=== PATIENT | female | born 1940 | race Caucasian/White ===

== ENCOUNTER 2020-08-23 06:06 | Outpatient (REF) | payer MEDICARE, SELFPAY ==
[2020-08-23 12:02] LABS: Alanine Aminotransferase 22 U/L (0-31); Anion Gap 11 (12-20); Aspartate Amino Transferase 16 U/L (5-31); Blood Urea Nitrogen 19 mg/dL (9-16); Calcium 9.8 mg/dL (8.4-10.2); Carbon Dioxide 30 mmol/L (22-29); Chloride 104 mmol/L (96-108); Cholesterol 155 mg/dL; Estimated Glomerular Filt Rate > 60; Glucose Fasting 98 mg/dL (60-99); HDL Cholesterol 45 mg/dL; LDL Cholesterol Calculated 90 mg/dl; Potassium 4.1 mmol/L (3.3-5.1); Sodium 141 mmol/L (135-145); Triglycerides 103 mg/dL
[2020-08-23 12:25] LABS: Thyroid Stimulating Hormone 3.13 uIU/mL (0.32-4.0)
[2020-08-28 08:32] LABS: Vitamin D 25-OH, D2 <4 ng/mL; Vitamin D 25-OH, D3 57 ng/mL; Vitamin D 25-OH, Total 57 ng/mL (30-100)
== END 2020-08-23 06:07 | disposition home or self-care (01) ==
LOC: HO.HMGCLDS 06:06
PROVIDERS: PCP Internal Medicine; Visit Provider Internal Medicine
DX: E03.9 Hypothyroidism, unspecified (principal); E78.5 Hyperlipidemia, unspecified; M85.852 Other specified disorders of bone density and structure, left thigh; R73.01 Impaired fasting glucose; I10 Essential (primary) hypertension
CPT/HCPCS: 36415; 80048; 80061; 82306; 84439; 84443; 84450; 84460

== ENCOUNTER 2021-02-14 07:15 | Outpatient (REF) | payer MEDICARE, SELFPAY ==
--- NOTE | ~2021-02-14 | MM_ITS ---
EXAMINATION: MM SCREENING DIGITAL BREAST TOMOSYNTHESIS, BILATERAL CLINICAL INFORMATION: Screening. Asymptomatic. The lifetime risk of breast cancer based on the Tyrer-Cuzick Model is 2%. COMPARISON: Mammography: 02/14/2020, 02/09/2019, 02/08/2018 TECHNIQUE: Digital breast tomosynthesis is performed in both the craniocaudal and mediolateral oblique views along with computer-aided detection (CAD). Synthesized 2D images are generated from the tomosynthesis. FINDINGS: There are scattered areas of fibroglandular density (ACR BI-RADS breast composition Category b). There are no significant masses, abnormal calcifications, or other abnormalities. Parenchymal pattern is similar to prior exams. Minor asymmetries central left and posterior outer right breast on the CC views are stable. 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 There are no significant changes. MM/MM tomosynthesis screening BI IMPRESSION: No mammographic evidence of malignancy. ASSESSMENT: BI-RADS 2: Benign RECOMMENDATION: Routine annual mammography screening. This patient's information was entered into a reminder system with a target due date for their next mammogram.
== END 2021-02-14 07:16 | disposition home or self-care (01) ==
LOC: HO.MAMMO 07:15
PROVIDERS: PCP Internal Medicine; Visit Provider Internal Medicine
DX: Z12.31 Encounter for screening mammogram for malignant neoplasm of breast (principal)
CPT/HCPCS: 77063; 77067

== ENCOUNTER 2021-03-03 06:34 | Outpatient (REF) | payer MEDICARE, SELFPAY ==
[2021-03-03 12:50] LABS: Free T4 (Free Thyroxine) 0.98 ng/dL (0.71-1.85); Thyroid Stimulating Hormone 2.17 uIU/mL (0.32-4.0); Vitamin D 25-OH Total 41.9 ng/mL (>30)
[2021-03-03 13:09] LABS: Alanine Aminotransferase 16 U/L (0-31); Anion Gap 8 (12-20); Aspartate Amino Transferase 12 U/L (5-31); Blood Urea Nitrogen 17 mg/dL (9-16); Calcium 9.7 mg/dL (8.4-10.2); Carbon Dioxide 29 mmol/L (22-29); Chloride 109 mmol/L (96-108); Cholesterol 164 mg/dL; Estimated Glomerular Filt Rate > 60; Glucose Fasting 104 mg/dL (60-99); HDL Cholesterol 38 mg/dL; LDL Cholesterol Calculated 101 mg/dl; Sodium 142 mmol/L (135-145); Triglycerides 126 mg/dL
== END 2021-03-03 06:35 | disposition home or self-care (01) ==
LOC: HO.HMGCLDS 06:34
PROVIDERS: PCP Internal Medicine; Visit Provider Internal Medicine
DX: E03.9 Hypothyroidism, unspecified (principal); E78.5 Hyperlipidemia, unspecified; M85.852 Other specified disorders of bone density and structure, left thigh; R73.01 Impaired fasting glucose; I10 Essential (primary) hypertension
CPT/HCPCS: 36415; 80048; 80061; 82306; 84439; 84443; 84450; 84460

== ENCOUNTER 2021-11-21 06:12 | Outpatient (REF) | payer MEDICARE, SELFPAY ==
[2021-11-21 12:06] LABS: Alanine Aminotransferase 13 U/L (0-31); Anion Gap 12 (12-20); Aspartate Amino Transferase 13 U/L (5-31); Blood Urea Nitrogen 20 mg/dL (9-16); Calcium 10.1 mg/dL (8.4-10.2); Carbon Dioxide 25 mmol/L (22-29); Chloride 110 mmol/L (96-108); Cholesterol 172 mg/dL; Estimated Glomerular Filt Rate > 60; Glucose Fasting 103 mg/dL (60-99); HDL Cholesterol 41 mg/dL; LDL Cholesterol Calculated 108 mg/dl; Potassium 4.6 mmol/L (3.3-5.1); Sodium 142 mmol/L (135-145); Triglycerides 117 mg/dL
[2021-11-21 12:11] LABS: Free T4 (Free Thyroxine) 1.02 ng/dL (0.71-1.85); Thyroid Stimulating Hormone 2.08 uIU/mL (0.32-4.0)
== END 2021-11-21 06:13 | disposition home or self-care (01) ==
LOC: HO.HMGCLDS 06:12
PROVIDERS: Visit Provider Internal Medicine
DX: E03.9 Hypothyroidism, unspecified (principal); M85.852 Other specified disorders of bone density and structure, left thigh; E78.5 Hyperlipidemia, unspecified; R73.01 Impaired fasting glucose; Z78.0 Asymptomatic menopausal state; Z51.81 Encounter for therapeutic drug level monitoring; Z79.83 Long term (current) use of bisphosphonates
CPT/HCPCS: 36415; 80048; 80061; 82306; 84439; 84443; 84450; 84460

== ENCOUNTER 2022-02-20 07:20 | Outpatient (REF) | payer MEDICARE, SELFPAY ==
--- NOTE | ~2022-02-20 | MM_ITS ---
EXAMINATION: MM SCREENING DIGITAL BREAST TOMOSYNTHESIS, BILATERAL CLINICAL INFORMATION: Screening. Asymptomatic. The lifetime risk of breast cancer based on the Tyrer-Cuzick Model is 2%. COMPARISON: Mammography: 02/14/2021, 02/14/2020, 02/09/2019, 02/08/2018, 02/05/2017 TECHNIQUE: Digital breast tomosynthesis is performed in both the craniocaudal and mediolateral oblique views along with computer-aided detection (CAD). Synthesized 2D images are generated from the tomosynthesis. FINDINGS: There are scattered areas of fibroglandular density (ACR BI-RADS breast composition Category b). Parenchymal pattern is similar to prior studies. There are scattered minor stable asymmetries. No significant mass or architectural abnormality or developing density. There is a small benign circumscribed nodule with peripheral coarse calcification mid outer right breast consistent with degenerating fibroadenoma. Bilateral vascular calcifications are again seen. Low axillary tail nodes are stable. There are no significant changes. MM/MM tomosynthesis screening BI IMPRESSION: No mammographic evidence of malignancy. ASSESSMENT: BI-RADS 2: Benign RECOMMENDATION: Routine annual mammography screening. This patient's information was entered into a reminder system with a target due date for their next mammogram.
--- NOTE | ~2022-02-20 | MM_ITS ---
EXAMINATION: BONE DENSITOMETRY CLINICAL INDICATION: Other specified disorders of bone density and structure. COMPARISON: Previous BD dated 02/14/2020 and baseline BD dated 12/15/2007. TECHNIQUE: Using a [employer] DXA System (software version: 13.1) manufactured by [employer], dual-energy x-ray absorptiometry was performed of the lumbar spine and left hip. The images are of good technical quality. Summary results are attached. FINDINGS: AP SPINE L1-L4: Current: BMD 1.294 g/cm2, Z-score 2.7, T-score 1.0, normal, 9.6% increase from previous, 16.6% increase from baseline (<5% change is not significant). Prior: BMD 1.181 g/cm2. Baseline: BMD 1.110 g/cm2. LEFT FEMUR, NECK: Current: BMD 0.600 g/cm2, Z-score -1.1, T-score -3.2, osteoporosis. Prior: BMD 0.700 g/cm2. Baseline: BMD 0.708 g/cm2. LEFT FEMUR, TOTAL: Current: BMD 0.757 g/cm2, Z-score -0.1, T-score -2.0, osteopenia, 12.6% decrease from previous, 8.8% decrease from baseline (<5% change is not significant). Prior: BMD 0.866 g/cm2. Baseline: BMD 0.830 g/cm2. IDENTIFIED RISK FACTORS: Menopause, hysterectomy, history of fracture (adult). HISTORY OF FRACTURE: Shoulder. MEDICATIONS: Multivitamin, bisphosphonates. MM/XR DEXA axial skeleton IMPRESSION: 1. DIAGNOSIS: Osteoporosis based on the lowest T-score value of -3.2 in the femoral neck applying World Health Organization criteria. 2. 10-YEAR FRACTURE RISK PREDICTION, FRAX: According to the guidelines, FRAX calculation should only be performed on patients in the osteopenia bone density category. Therefore, FRAX was not performed on this patient. 3. Treatment Recommendations: NOF guidelines recommend consideration for treatment in postmenopausal women and men age 50 and older presenting with the following: -A hip or vertebral (clinical or morphometric) fracture. -T-score less than or equal to -2.5 at the femoral neck or spine after appropriate evaluation to exclude secondary causes. -Low bone mass at the hip or spine and a 10-year fracture probability by FRAX of greater than or equal to 3% for hip fracture or greater than or equal to 20% for major osteoporotic fracture based on the [place] adapted WHO algorithm. 4. Other Recommendations: All treatment decisions require clinical judgment and consideration of individual patient factors, including patient preferences, comorbidities, previous drug use, risk factors not captured in the FRAX model (e.g. frailty, falls, vitamin D deficiency, increased bone turnover, interval significant decline in bone density) and possible under or overestimation of fracture risk by FRAX. Additional medical evaluation for secondary cause of low bone mineral density may be appropriate. FUTURE SCAN RECOMMENDATION: People with diagnosed cases of osteoporosis or at high risk for fracture should have regular bone mineral density tests. For patients eligible for Medicare, routine testing is allowed once every 2 years. The testing frequency can be increased to one year for patients who have rapidly progressing disease, those who are receiving or discontinuing medical therapy to restore bone mass, or have additional risk factors.
== END 2022-02-20 07:21 | disposition home or self-care (01) ==
LOC: HO.MAMMO 07:20
PROVIDERS: PCP Internal Medicine; Visit Provider Internal Medicine
DX: Z12.31 Encounter for screening mammogram for malignant neoplasm of breast (principal); Z13.820 Encounter for screening for osteoporosis; Z78.0 Asymptomatic menopausal state; M85.852 Other specified disorders of bone density and structure, left thigh
CPT/HCPCS: 77063; 77067; 77080

== ENCOUNTER → 2022-02-26 13:34 | Outpatient (BNVA) | payer MEDICARE, SELFPAY | PROVIDERS: PCP Internal Medicine; Visit Provider Internal Medicine Endocrinology, Diabetes & Metabolism | DX: M81.0 Age-related osteoporosis without current pathological fracture (principal) | CPT/HCPCS: 99202 ==

== ENCOUNTER 2022-04-28 06:47 | Outpatient (REF) | payer MEDICARE, SELFPAY ==
[2022-04-28 11:29] LABS: MANUAL DIFF FLAG NO
[2022-04-28 11:38] LABS: Basophils Percent Auto 0.6 % (0-2); Eosinophils Absolute Auto 0.1 X10*3/uL (0.0-0.4); Eosinophils Percent Auto 2.1 % (0-4); Hematocrit 41.9 % (37.0-47.0); Hemoglobin 13.6 g/dl (12.0-16.0); Imm Gran Abs Auto 0.02 X10*3/uL (0.00-0.03); Imm Gran Pct Auto 0.3 % (0.0-0.4); Lymphocytes Absolute Auto 1.8 X10*3/uL (1.2-4.9); Lymphocytes Percent Auto 28.9 % (20-40); Mean Corpuscular HGB Conc 32.5 g/dl (31.0-35.0); Mean Corpuscular Hemoglobin 28.9 pg (27.0-33.0); Mean Corpuscular Volume 89.1 fL (80.0-98.0); Mean Platelet Volume 10.7 fL (9.4-12.3); Monocytes Absolute Auto 0.5 X10*3/uL (0.1-1.2); Monocytes Percent Auto 7.7 % (2-11); Neutrophils Absolute Auto 3.8 x10*3/uL (2.0-8.3); Neutrophils Percent Auto 60.4 % (45-73); Platelet Count 273 X10*3/uL (160-400); Red Cell Distribution Width 13.2 % (11.0-16.0); White Blood Count 6.3 X10*3/uL (4.8-10.8)
[2022-04-28 12:11] LABS: Estimated Average Glucose 120 mg/dL; Hemoglobin A1c % 5.8 %
[2022-04-28 14:10] LABS: Alanine Aminotransferase 24 U/L (0-31); Anion Gap 11 (12-20); Aspartate Amino Transferase 17 U/L (5-31); Blood Urea Nitrogen 21 mg/dL (9-16); Calcium 10.3 mg/dL (8.4-10.2); Carbon Dioxide 28 mmol/L (22-29); Chloride 107 mmol/L (96-108); Cholesterol 189 mg/dL; Estimated Glomerular Filt Rate > 60; Glucose Fasting 110 mg/dL (60-99); HDL Cholesterol 48 mg/dL; LDL Cholesterol Calculated 116 mg/dl; Phosphorus 3.5 mg/dL (2.7-4.5); Potassium 4.1 mmol/L (3.3-5.1); Sodium 142 mmol/L (135-145); Thyroid Stimulating Hormone 3.07 uIU/mL (0.32-4.0); Triglycerides 127 mg/dL
[2022-04-28 18:01] LABS: Free T4 (Free Thyroxine) 1.05 ng/dL (0.71-1.85); Vitamin D 25-OH Total 56.4 ng/mL (>30)
[2022-05-01 22:49] LABS: Prot Elec - Albumin 4.4 g/dL (3.8-4.8); Prot Elec - Alpha1 0.2 g/dL (0.2-0.3); Prot Elec - Alpha2 0.8 g/dL (0.5-0.9); Prot Elec - Beta 1 0.4 g/dL (0.4-0.6); Prot Elec - Beta 2 0.3 g/dL (0.2-0.5); Prot Elec - Gamma 0.8 g/dL (0.8-1.7); Prot Elec - Total Protein 6.8 g/dL (6.1-8.1)
[2022-05-04 14:23] LABS: N-Telopeptide 23 (see note); NTXCreaRU 45 mg/dL (20-275)
== END 2022-04-28 06:48 | disposition home or self-care (01) ==
LOC: HO.HMGCLDS 06:47
PROVIDERS: Absent Provider Internal Medicine Endocrinology, Diabetes & Metabolism; PCP Internal Medicine; Visit Provider Internal Medicine
DX: Z00.01 Encounter for general adult medical examination with abnormal findings (principal); R73.01 Impaired fasting glucose; E03.9 Hypothyroidism, unspecified; M85.852 Other specified disorders of bone density and structure, left thigh; E78.5 Hyperlipidemia, unspecified; M81.0 Age-related osteoporosis without current pathological fracture
CPT/HCPCS: 36415; 80048; 80061; 82306; 82523; 83036; 84100; 84165; 84439; 84443; 84450; 84460; 85025

== ENCOUNTER 2022-06-09 06:10 | Outpatient (REF) | payer MEDICARE, SELFPAY ==
[2022-06-09 14:09] LABS: Total Volume 24 Hour Urine 2025 mL
[2022-06-09 14:21] LABS: Creatinine, 24Hr Urine 0.9 G/Day (1.0-2.0); Creatinine, mg/dL 44.88
[2022-06-11 16:23] LABS: Calcium, 24 Hr Urine 128 mg/24 h; Calcium/Creatinine Ratio 147 mg/g creat (30-275); Creatinine 24Hr Urine 0.87 g/24 h (0.50-2.15)
== END 2022-06-09 06:11 | disposition home or self-care (01) ==
LOC: HO.HMGCLDS 06:10
PROVIDERS: PCP Internal Medicine; Visit Provider Internal Medicine Endocrinology, Diabetes & Metabolism
DX: M81.0 Age-related osteoporosis without current pathological fracture (principal)
CPT/HCPCS: 82340; 82570

== ENCOUNTER 2022-07-01 07:42 | Outpatient (REF) | payer MEDICARE, SELFPAY | END 2022-07-01 07:43 | disposition home or self-care (01) | LOC: HO.HMGCLDS 07:42 | PROVIDERS: PCP Internal Medicine; Visit Provider Internal Medicine Endocrinology, Diabetes & Metabolism | DX: M81.0 Age-related osteoporosis without current pathological fracture (principal) | CPT/HCPCS: 86335 ==

== ENCOUNTER → 2022-07-03 07:57 | Outpatient (BNVA) | payer MEDICARE, SELFPAY | PROVIDERS: PCP Internal Medicine; Visit Provider Internal Medicine Endocrinology, Diabetes & Metabolism | DX: M81.0 Age-related osteoporosis without current pathological fracture (principal); E03.9 Hypothyroidism, unspecified; R73.01 Impaired fasting glucose | CPT/HCPCS: 99212 ==

== ENCOUNTER 2022-09-08 06:21 | Outpatient (REF) | payer MEDICARE, SELFPAY ==
[2022-09-08 11:51] LABS: Alanine Aminotransferase 16 U/L (0-31); Anion Gap 11 (12-20); Aspartate Amino Transferase 14 U/L (5-31); Blood Urea Nitrogen 14 mg/dL (9-16); Calcium 9.8 mg/dL (8.4-10.2); Carbon Dioxide 27 mmol/L (22-29); Chloride 110 mmol/L (96-108); Cholesterol 175 mg/dL; Estimated Glomerular Filt Rate > 60; Glucose Fasting 111 mg/dL (60-99); HDL Cholesterol 41 mg/dL; LDL Cholesterol Calculated 110 mg/dl; Potassium 4.7 mmol/L (3.3-5.1); Sodium 143 mmol/L (135-145); Triglycerides 122 mg/dL
[2022-09-08 12:09] LABS: Free T4 (Free Thyroxine) 1.13 ng/dL (0.71-1.85); Thyroid Stimulating Hormone 2.26 uIU/mL (0.32-4.0)
[2022-09-08 12:11] LABS: Estimated Average Glucose 117 mg/dL; Hemoglobin A1c % 5.7 %
== END 2022-09-08 06:22 | disposition home or self-care (01) ==
LOC: HO.HMGCLDS 06:21
PROVIDERS: Absent Provider Internal Medicine Endocrinology, Diabetes & Metabolism; PCP Internal Medicine; Visit Provider Internal Medicine
DX: R73.01 Impaired fasting glucose (principal); E03.9 Hypothyroidism, unspecified; E78.5 Hyperlipidemia, unspecified
CPT/HCPCS: 36415; 80048; 80061; 83036; 84439; 84443; 84450; 84460

== ENCOUNTER 2022-09-16 08:19 | Outpatient (AMB) | payer MEDICARE, SELFPAY ==
[2022-09-16 08:38] VITALS: BP 148/70; PULSE 88; O2SAT 98; BMI 26.2
--- NOTE | 2022-09-16 08:38 | MHC.PC.OV ---
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 Intake Note: Pt is here today for her 4 months f/u Allergies No Known Allergies [No Known Allergies*] Allergy (Verified 03/16/23 09:18) Medication List - Last Reconciled 09/16/22 by Sandi Faulkner MD aspirin 81 mg PO DAILY cholecalciferol (vitamin D3) 25 mcg PO DAILY levothyroxine 50 mcg PO QAM simvastatin 40 mg PO BEDTIME Tobacco use date assessed: 09/16/22 Fall risk assessment: No Falls in past year Last assessed Fall Risk: 09/16/22 HPI 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 Recent fasting labs done showed normal electrolytes, with normal renal function, fasting glucose is mildly elevated but hemoglobin A1c at 5.7%, liver enzymes, lipid levels, thyroid levels are all within normal limits as well Laboratory Tests 09/08/22 09/08/22 06:44 06:44 Sodium 143 Potassium 4.7 Chloride 110 H Carbon Dioxide 27 Anion Gap 11 L BUN 14 Creatinine 0.74 Estimated GFR > 60 Fasting Glucose 111 H Estimat Average Gl ucose 117 Hemoglobin A1c % 5.7 Calcium 9.8 AST 14 ALT 16 Triglycerides 122 Cholesterol 175 LDL Cholesterol, C alc 110 HDL Cholesterol 41 TSH 2.26 Free T4 1.13 [facility] Medical History (Updated 03/17/23 @ 03:30 by Sandi Faulkner MD) Refused influenza vaccine Osteoporosis Fracture dislocation of left shoulder joint Impaired fasting glucose Hypothyroidism (acquired) Hyperlipidemia Surgical History History of cataract surgery History of tonsillectomy and adenoidectomy Hx of total hysterectomy Family History Father No problems noted. Mother No problems noted. Maternal Grandmother No problems noted. Maternal Grandfather No problems noted. Social History Housing: House Alcohol intake: never Patient Tobacco Use Status: Never used Tobacco e-Cigarette/Vaping Use: Never Used Current occupational status: retired Cognitive needs: No Hearing needs: No Vision needs: No Questionnaire PHQ-9 Over the last 2 weeks, how often have you been bothered by any of the following problems? 15903 - PHQ-9 Billing: Patient declined-do not bill Source: Developed by Drs. Daryl Sandoval, Ananth Alanis and colleagues, with an educational becky from [employer]. Thrive Questionnaire Declines Thrive assessment: Yes Date Thrive assessed: 11/27/21 AUDIT C Alcohol Use Questionnaire (AUDIT-C) 1. How often do you have a drink containing alcohol?: Monthly or less 2. How many drinks containing alcohol do you have on a typical day when you are drinking?: 1 or 2 3. How often do you have six or more drinks on one occasion?: Never Total Score: 1 BINTA-7 AMB Questionnaire BINTA-7 Date BINTA - 7 assessed: 09/16/22 Source: Developed by Drs. Daryl Sandoval, Megan Gurrola, Ananth Lake and colleagues, with an educational becky from [employer]. BINTA-7 Assessment Billing BINTA-7 Assessment Tool: pt declined-do not bill Review of Systems Const Denies body aches, Denies fatigue, Denies fever(s), Denies headache(s) and Denies weakness Eyes Details: Up-to-date with her eye exam, goes to [facility] Denies change in vision ENT Denies dizziness, Denies headache(s), Denies nasal congestion, Denies nasal discharge and Denies sore throat Card Denies chest pain, Denies lightheadedness, Denies palpitations and Denies dyspnea Resp Denies chest congestion, Denies cough, Denies dyspnea and Denies wheezing GI Denies abdominal pain, Denies change in bowel habits and Denies heartburn Denies hematuria, Denies urinary frequency, Denies dysuria and Denies urinary urgency Musc Reports no additional complaints Skin/Breast Denies breast pain, Denies breast mass, Denies lesions and Denies rash Neuro Denies dizziness, Denies headache(s) and Denies weakness Psych Reports no additional complaints Endo Denies fatigue, Denies polydipsia, Denies polyuria and Denies palpitations Michael/Lymph Denies easy bruising Aller/Immun Denies seasonal rhinorrhea and Denies wheezing Physical exam (Primary Care) Vital Signs: Last Vital Signs Pulse 88 09/16/22 08:38 BP 148/70 H 09/16/22 08:38 Pulse Ox 98 09/16/22 08:38 Oxygen Delivery Method Room Air 09/16/22 08:38 BMI result Body Mass Index 26.2 Tobacco/Smoking Status: Tobacco use Status Tobacco use date assessed 09/16/22 09/16/22 08:41 Patient Tobacco Use Status Never used Tobacco 09/16/22 08:41 e-Cigarette/Vaping Use Never Used 09/16/22 08:41 Thrive Assessment: Date of Thrive Assessment Date Thrive assessed 11/27/21 09/16/22 08:41 Const General: comfortable, no acute distress and alert Orientation/consciousness: patient oriented x3 Limitations: no limitations HENMT Ears: hearing grossly normal bilaterally, external ears normal and Abnormal EAC present excessive cerumen bilateral General nose exam: Normal external nose present and No nasal discharge present Mouth: oropharynx normal and moist mucous membranes Eyes General: appearance normal, both eyes and all related structures Neck Neck: Yes full ROM, Yes no lymphadenopathy and Yes supple Thyroid: Thyroid normal Resp Effort & Inspection: normal respiratory effort and able to speak in complete sentences Auscultation: clear to auscultation bilaterally Cardio Rate: regular rate Rhythm: regular rhythm Heart sounds: S1 normal heart sound present and S2 normal heart sound present GI Palpation (GI): Soft to palpation, nontender and no masses Auscultation: normal bowel sounds Neuro General: patient oriented x3, gait normal, tone normal, moves all extremities, Normal light touch and pain sensation and no focal motor deficits Cranial nerves: Yes CN's II-XII intact bilaterally Cognition (Neuro): normal cognition Extrem General: Yes full ROM, Yes no joint enlargement, Yes no clubbing, cyanosis or edema and Yes no calf tenderness Results Reviewed Results Reviewed: PEC : [id number] CYNDI: 09/08/22 STATUS: COMP REQ : [id number] RECD: 09/08/22-[address]: Sandi Faulkner MD COMP: 09/08/22-1209 ENTERED: 09/08/22-[address] [facility] DR: ORDERED: Met Prof Fast, AST, ALT, Lipid Panel, Free T4, TSH Test Result Flag Reference Site Sodium 143 135-145 mmol/L Potassium 4.7 3.3-5.1 mmol/L CL 110 H 96-108 mmol/L CO2 27 22-29 mmol/L Gap 11 L 12-20 BUN 14 9-16 mg/dL Creat 0.74 0.5-1.4 mg/dL EGFR > 60 NOTE: For -[place] individuals, multiply the result by 1.210. Chronic Kidney Disease: Estimated GFR < 60 mL/min/1.73m2 Severe Kidney Disease: Estimated GFR < 15 mL/min/1.73m2 FBS 111 H 60-99 mg/dL A fasting glucose from 100-125 mg/dl is considered impaired (pre-diabetes). CA 9.8 8.4-10.2 mg/dL AST (GOT) 14 5-31 U/L ALT (GPT) 16 0-31 U/L Triglyceride 122 mg/dL Desirable Triglyceride: less than 150 mg/dL Borderline High Triglyceride 150-199 mg/dL High Triglyceride: 200-499 mg/dL Very High Triglyceride: greater than or equal to 5OO mg/dL Chol 175 mg/dL Desirable Cholesterol: less than 200 mg/dL Borderline High Cholesterol: 200-239 mg/dL High Cholesterol: greater than 239 mg/dL LDL Calculated 110 mg/dl Desirable LDL: less than 100 mg/dL Near Optimal/Above Optimal LDL: 110-129 mg/dL Borderline High LDL: 130-159 mg/dL High LDL: 160-189 mg/dL Very High LDL: greater than or equal to 190 mg/dL HDL 41 mg/dL Desirable HDL: greater than 40 mg/dL Note: This HDL assay may give artificially low results in patients with liver disease. Free T4 1.13 0.71-1.85 ng/dL TSH 3rd Gen. 2.26 0.32-4.0 uIU/mL Assessment and Plan Assessment & Plan (1) Osteoporosis: Comment: left femoral neck on dexa 2021 Code(s): M81.0 - Age-related osteoporosis without current pathological fracture Qualifiers: Osteoporosis type: age-related Presence of current pathological fracture: without current pathological fracture Qualified Code(s): M81.0 - Age-related osteoporosis without current pathological fracture Plan: Previously was on alendronate for more than 5 years, not much improvement noted, she has been referred already to endocrine clinic for further evaluation and management. Advised to continue staying active, do regular weight-bearing exercise, continue taking vitamin-D 3 supplements at least 2000 units daily and take adequate calcium from dietary sources (2) Impaired fasting glucose: Comment: Code(s): R73.01 - Impaired fasting glucose Plan: Continue with regular exercise, and healthy eating habits. (3) Hypothyroidism (acquired): Code(s): E03.9 - Hypothyroidism, unspecified Plan: Thyroid levels are within normal limits, continued on current dose of levothyroxine at 50 mcg daily in a.m. (4) Hyperlipidemia: Code(s): E78.5 - Hyperlipidemia, unspecified Plan: Fasting lipids are within normal limits, continued on simvastatin 40 mg daily, and reinforced importance of following healthy diet and getting regular exercise. Orders: Orders Hemoglobin A1c 6 Months M81.0 - Age-related osteoporosis without current pathological fracture, R73.01 - Impaired fasting glucose, E03.9 - Hypothyroidism, unspecified, E78.5 - Hyperlipidemia, unspecified Lipid Panel 6 Months M81.0 - Age-related osteoporosis without current pathological fracture, R73.01 - Impaired fasting glucose, E03.9 - Hypothyroidism, unspecified, E78.5 - Hyperlipidemia, unspecified Vitamin D 25-OH Total 6 Months M81.0 - Age-related osteoporosis without current pathological fracture, R73.01 - Impaired fasting glucose, E03.9 - Hypothyroidism, unspecified, E78.5 - Hyperlipidemia, unspecified Alanine Aminotransferase 6 Months M81.0 - Age-related osteoporosis without current pathological fracture, R73.01 - Impaired fasting glucose, E03.9 - Hypothyroidism, unspecified, E78.5 - Hyperlipidemia, unspecified Aspartate Amino Transferase 6 Months M81.0 - Age-related osteoporosis without current pathological fracture, R73.01 - Impaired fasting glucose, E03.9 - Hypothyroidism, unspecified, E78.5 - Hyperlipidemia, unspecified Basic Metabolic Panel Fasting 6 Months M81.0 - Age-related osteoporosis without current pathological fracture, R73.01 - Impaired fasting glucose, E03.9 - Hypothyroidism, unspecified, E78.5 - Hyperlipidemia, unspecified Thyroid Stimulating Hormone 6 Months M81.0 - Age-related osteoporosis without current pathological fracture, R73.01 - Impaired fasting glucose, E03.9 - Hypothyroidism, unspecified, E78.5 - Hyperlipidemia, unspecified Free T4 (Free Thyroxine) 6 Months E03.9 - Hypothyroidism, unspecified, M81.0 - Age-related osteoporosis without current pathological fracture, R73.01 - Impaired fasting glucose, E78.5 - Hyperlipidemia, unspecified Medications: Refilled levothyroxine 50 mcg PO QAM 90 tabs 3RF Coding Level of Care Code Est Pt Level 4 (76765) Diagnoses Age-related osteoporosis without current pathological fracture M81.0 Osteoporosis type: age-related Presence of current pathological fracture: without current pathological fracture Impaired fasting glucose R73.01 Hypothyroidism (acquired) E03.9 Hyperlipidemia E78.5
== END 2022-09-16 09:19 | disposition home or self-care (01) ==
LOC: HO.HMGC 08:19
PROVIDERS: PCP Internal Medicine; Visit Provider Internal Medicine
DX: M81.0 Age-related osteoporosis without current pathological fracture (principal); R73.01 Impaired fasting glucose; E03.9 Hypothyroidism, unspecified; E78.5 Hyperlipidemia, unspecified
CPT/HCPCS: 99214

== ENCOUNTER 2022-12-10 07:16 | Outpatient (REF) | payer MEDICARE, SELFPAY ==
[2022-12-18 19:13] LABS: N-Telopeptide 28 (see note); NTXCreaRU 45 mg/dL (20-275)
== END 2022-12-10 07:17 | disposition home or self-care (01) ==
LOC: HO.CHCLNP 07:16
PROVIDERS: Visit Provider Internal Medicine Endocrinology, Diabetes & Metabolism
DX: M81.0 Age-related osteoporosis without current pathological fracture (principal)
CPT/HCPCS: 82523

== ENCOUNTER 2023-01-01 07:56 | Outpatient (AMB) | payer MEDICARE, SELFPAY ==
--- NOTE | 2023-01-01 07:59 | MHC.OFFVIS ---
Intake Vital Signs 01/01/23 08:01 Height 5 ft 3.69 in Weight 147 lb 4.301 oz BMI 25.5 BP 152/74 H Blood Pressure Location Lt brachial Position Sitting Pulse 53 Pulse Source Pulse Oximeter Intake Visit Reasons: osteoporosis without current pathological fracture Intake Note: Patient present today for Osteoporosis without current pathological fracture. 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 First diagnosed with osteoporosis many yrs ago . Receiving treatment with alendronate , more than 10 yrs Tolerated treatment well without complication. No history of pathologic fracture or ONJ. But hx of R shoulder fx fell from standing Has several servings of dietary calcium per day in the form of cheese, yogurt . Does not Takes Calcium supplement Takes 1000 IU of Vitamin D daily. Denies ever using PPI, anticoagulant, antiepileptic or glucocorticoid medication. Does weight bearing exercise 7 days per week in the form of walking . 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 UTD on dental cleanings and sees dentist every 6 months. No planned upcoming dental work or extractions. DXA dated []:FINDINGS: AP SPINE L1-L4: Current: BMD 1.294 g/cm2, Z-score 2.7, T-score 1.0, normal, 9.6% increase from previous, 16.6% increase from baseline (<5% change is not significant). Prior: BMD 1.181 g/cm2. Baseline: BMD 1.110 g/cm2. LEFT FEMUR, NECK: Current: BMD 0.600 g/cm2, Z-score -1.1, T-score -3.2, osteoporosis. Prior: BMD 0.700 g/cm2. Baseline: BMD 0.708 g/cm2. LEFT FEMUR, TOTAL: Current: BMD 0.757 g/cm2, Z-score -0.1, T-score -2.0, osteopenia, 12.6% decrease from previous, 8.8% decrease from baseline (<5% change is not significant). Prior: BMD 0.866 g/cm2. Baseline: BMD 0.830 g/cm2. IDENTIFIED RISK FACTORS: Menopause, hysterectomy, history of fracture (adult). HISTORY OF FRACTURE: Shoulder. MEDICATIONS: Multivitamin, bisphosphonates. MM/XR DEXA axial skeleton IMPRESSION: 1. DIAGNOSIS: Osteoporosis based on the lowest T-score value of -3.2 in the femoral neck applying World Health Organization criteria.? Labs: secondary workup negative. Urine NTX continues to be suppressed. Fractures since last visit [facility] Medical History (Updated 09/16/22 @ 09:00 by Sandi Faulkner MD) Fracture dislocation of left shoulder joint Hyperlipidemia Hypothyroidism (acquired) Impaired fasting glucose Osteoporosis Surgical History History of cataract surgery History of tonsillectomy and adenoidectomy Hx of total hysterectomy Family History Father No problems noted. Mother No problems noted. Maternal Grandmother No problems noted. Maternal Grandfather No problems noted. Social History Housing: House Alcohol intake: never Patient Tobacco Use Status: Never used Tobacco e-Cigarette/Vaping Use: Never Used Current occupational status: retired Cognitive needs: No Hearing needs: No Vision needs: No Assessment & Plan Assessment & Plan (1) Osteoporosis: Comment: left femoral neck on dexa 2021 Code(s): M81.0 - Age-related osteoporosis without current pathological fracture Plan: This is a 81-year-old white female with a history of osteoporosis. Has taken 10 years of alendronate therapy. secondary workup is negative. Urine NTX suppressed The plan is to hold the alendronate and will repeat bone density 1 year's time. Continue calcium and vitamin-D Orders: Orders XR DEXA axial skeleton 11 Months M81.0 - Age-related osteoporosis without current pathological fracture Coding Level of Care Code Est Pt Level 3 (67754) Diagnoses Osteoporosis M81.0
[2023-01-01 08:01] VITALS: BP 152/74; PULSE 53; BMI 25.5
== END 2023-01-01 08:20 | disposition home or self-care (01) ==
PROVIDERS: PCP Internal Medicine; Visit Provider Internal Medicine Endocrinology, Diabetes & Metabolism
DX: M81.0 Age-related osteoporosis without current pathological fracture (principal)
CPT/HCPCS: 99213

== ENCOUNTER → 2023-01-01 07:56 | Outpatient (BNVA) | payer MEDICARE, SELFPAY | PROVIDERS: Visit Provider Internal Medicine Endocrinology, Diabetes & Metabolism | DX: M81.0 Age-related osteoporosis without current pathological fracture (principal); Z90.710 Acquired absence of both cervix and uterus; Z79.83 Long term (current) use of bisphosphonates | CPT/HCPCS: 99212 ==

== ENCOUNTER 2023-03-02 07:16 | Outpatient (REF) | payer MEDICARE, SELFPAY | END 2023-03-02 07:17 | disposition home or self-care (01) | LOC: HO.MAMMO 07:16 | PROVIDERS: PCP Internal Medicine; Visit Provider Internal Medicine | DX: Z12.31 Encounter for screening mammogram for malignant neoplasm of breast (principal) | CPT/HCPCS: 77063; 77067 ==

== ENCOUNTER → 2023-03-02 07:30 | Outpatient (BNV) | payer MEDICARE, SELFPAY | PROVIDERS: PCP Internal Medicine; Visit Provider Radiology Diagnostic Radiology | DX: Z12.31 Encounter for screening mammogram for malignant neoplasm of breast (principal) | CPT/HCPCS: 77063; 77067 ==

== ENCOUNTER 2023-03-09 06:09 | Outpatient (REF) | payer MEDICARE, SELFPAY ==
[2023-03-09 11:57] LABS: Estimated Average Glucose 111 mg/dL; Hemoglobin A1c % 5.5 % (<6.0)
[2023-03-09 12:31] LABS: Alanine Aminotransferase 16 U/L (0-31); Anion Gap 13 (12-20); Aspartate Amino Transferase 16 U/L (5-31); Blood Urea Nitrogen 21 mg/dL (9-16); Calcium 10.3 mg/dL (8.4-10.2); Carbon Dioxide 26 mmol/L (22-29); Chloride 106 mmol/L (96-108); Cholesterol 187 mg/dL (<200); Estimated Glomerular Filt Rate > 60; Glucose Fasting 110 mg/dL (60-99); HDL Cholesterol 43 mg/dL (>40); LDL Cholesterol Calculated 118 mg/dL (<100); Potassium 4.6 mmol/L (3.3-5.1); Sodium 140 mmol/L (135-145); Triglycerides 133 mg/dL (<150)
[2023-03-09 12:32] LABS: Free T4 (Free Thyroxine) 0.94 ng/dL (0.71-1.85); Thyroid Stimulating Hormone 3.22 uIU/mL (0.32-4.0); Vitamin D 25-OH Total 79.7 ng/mL (>30)
== END 2023-03-09 06:10 | disposition home or self-care (01) ==
LOC: HO.HMGCLDS 06:09
PROVIDERS: PCP Internal Medicine; Visit Provider Internal Medicine
DX: M81.0 Age-related osteoporosis without current pathological fracture (principal); R73.01 Impaired fasting glucose; E03.9 Hypothyroidism, unspecified; E78.5 Hyperlipidemia, unspecified
CPT/HCPCS: 36415; 80048; 80061; 82306; 83036; 84439; 84443; 84450; 84460

== ENCOUNTER 2023-03-16 08:09 | Outpatient (AMB) | payer MEDICARE, SELFPAY ==
[2023-03-16 08:15] VITALS: BP 138/82; PULSE 81; O2SAT 92; BMI 25.6
--- NOTE | 2023-03-16 08:15 | MHC.PC.OV ---
Vital Signs 03/16/23 08:15 Height 5 ft 3.69 in Weight 148 lb BMI 25.6 BP 138/82 Blood Pressure Location Rt brachial Position Sitting Pulse 81 Pulse Source Pulse Oximeter Pulse Oximetry (%) 92 Oxygen Delivery Method Room Air Intake Visit Reasons: 6m follow up Intake Note: pt is here to go over her lab results pt has not had her flu vaccine or the recent covid vaccine Allergies No Known Allergies [No Known Allergies*] Allergy (Verified 03/16/23 09:18) Medication List - Last Reconciled 03/17/23 by Sandi Faulkner MD aspirin 81 mg PO DAILY cholecalciferol (vitamin D3) 25 mcg PO DAILY levothyroxine 50 mcg PO QAM simvastatin 40 mg PO BEDTIME Tobacco use date assessed: 03/16/23 Fall risk assessment: No Falls in past year Last assessed Fall Risk: 03/16/23 Dental Screening Dental Screen Date: 03/16/23 Did you have a dental visit in the last 12 months?: No Did you have a dental problem in the last 6 months where you did not have access to dental care?: No Was dental information given to patient?: No HPI 6m follow up HPI Details 83 Year old lady with hypothyroidism, dyslipidemia, here today for a follow-up. She has been compliant with taking her medications, and stays active. Patient states that she feels well, mows her lawn, does all her housework, still drives her own car. She has not yet had her COVID vaccine, will be scheduling appointment for this, up-to-date with her pneumonia vaccine and Tdap, but does not want to get the flu vaccine. She has osteoporosis, with no history of recent fracture, previously on alendronate, now currently being followed by Dr. Muller, who ordered a repeat bone density scan prior to starting her on any treatment [facility] Medical History (Updated 03/17/23 @ 02:33 by Sandi Faulkner MD) Refused influenza vaccine Osteoporosis Fracture dislocation of left shoulder joint Impaired fasting glucose Hypothyroidism (acquired) Hyperlipidemia Surgical History History of cataract surgery History of tonsillectomy and adenoidectomy Hx of total hysterectomy Family History Father No problems noted. Mother No problems noted. Maternal Grandmother No problems noted. Maternal Grandfather No problems noted. Social History Housing: House Alcohol intake: never Patient Tobacco Use Status: Never used Tobacco e-Cigarette/Vaping Use: Never Used Current occupational status: retired Cognitive needs: No Hearing needs: No Vision needs: No Female Reproductive History Menstrual Date of Mammogram: 03/02/23 History of abnormal mammogram: No Questionnaire PHQ-9 Over the last 2 weeks, how often have you been bothered by any of the following problems? [id number] - PHQ-9 Billing: Patient declined-do not bill Source: Developed by Drs. Daryl Sandoval, Megan Gurrola, Ananth Lake and colleagues, with an educational becky from [employer]. Thrive Questionnaire Date Thrive assessed: 03/16/23 I am a: Patient What is your living situation today?: I have a steady place to live Within the past 12 months, did the food you bought not last and you didn't have the money to get more?: Never true Within the past 12 months, did you worry whether your food would run out before you got money to buy more?: Never true Do you have trouble paying for medicines?: No Do you have trouble getting transportation to medical appointments?: No Do you have trouble paying your heating and electricity bill?: No Do you have trouble taking care of your child, family member or friend?: No Do you have trouble with day-to-day activities such as bathing, preparing meals, shopping, managing finances, etc.?: No Are you currently unemployed and looking for a job?: No Are you interested in more education?: No Please select the resources that you would like help with: None AUDIT C Alcohol Use Questionnaire (AUDIT-C) 1. How often do you have a drink containing alcohol?: Never Total Score: 0 BINTA-7 AMB Questionnaire BINTA-7 Date BINTA - 7 assessed: 03/16/23 Source: Developed by Drs. Daryl Sandoval, Ananth Alanis and colleagues, with an educational becky from [employer]. BINTA-7 Assessment Billing BINTA-7 Assessment Tool: pt declined-do not bill Review of Systems Const Denies body aches, Denies fatigue, Denies fever(s), Denies frequent falls, Denies headache(s), Denies malaise and Denies weakness Eyes Details: Up-to-date with her eye exam, goes to [facility] Reports no additional complaints and Denies change in vision ENT Denies dizziness, Denies headache(s), Denies nasal congestion, Denies nasal discharge, Denies disequilibrium and Denies sore throat Card Denies chest pain, Denies lightheadedness, Denies palpitations and Denies dyspnea Resp Denies chest congestion, Denies cough, Denies dyspnea and Denies wheezing GI Denies abdominal pain, Denies change in bowel habits and Denies heartburn Denies urinary frequency, Denies difficulty voiding, Denies dysuria, Denies prolapse symptoms and Denies urinary urgency Musc Reports no additional complaints Skin/Breast Denies breast pain, Denies breast mass, Denies lesions and Denies rash Neuro Denies dizziness, Denies frequent falls, Denies headache(s), Denies disequilibrium and Denies weakness Psych Reports no additional complaints Endo Denies fatigue, Denies polydipsia, Denies polyuria and Denies palpitations Michael/Lymph Denies easy bruising Aller/Immun Denies seasonal rhinorrhea and Denies wheezing Physical exam (Primary Care) Vital Signs: Last Vital Signs Pulse 81 03/16/23 08:15 BP 138/82 03/16/23 08:15 Pulse Ox 92 03/16/23 08:15 Oxygen Delivery Method Room Air 03/16/23 08:15 BMI result Body Mass Index 25.6 Tobacco/Smoking Status: Tobacco use Status Tobacco use date assessed 03/16/23 03/16/23 08:23 Patient Tobacco Use Status Never used Tobacco 03/16/23 08:23 e-Cigarette/Vaping Use Never Used 03/16/23 08:23 Thrive Assessment: Date of Thrive Assessment Date Thrive assessed 11/27/21 03/16/23 08:23 Const General: comfortable, no acute distress and alert Orientation/consciousness: patient oriented x3 Limitations: no limitations HENMT Ears: hearing grossly normal bilaterally and external ears normal General nose exam: Normal external nose present Mouth: oropharynx normal and moist mucous membranes Eyes General: appearance normal, both eyes and all related structures Neck Neck: Yes full ROM, Yes no lymphadenopathy and Yes supple Resp Effort & Inspection: normal respiratory effort and able to speak in complete sentences Auscultation: clear to auscultation bilaterally Cardio Rate: regular rate Rhythm: regular rhythm Heart sounds: S1 normal heart sound present and S2 normal heart sound present GI Palpation (GI): Soft to palpation, nontender and no masses Auscultation: normal bowel sounds Neuro General: patient oriented x3, gait normal, moves all extremities and no focal motor deficits Cranial nerves: Yes CN's II-XII intact bilaterally Cognition (Neuro): normal cognition Gait exam (Neuro): Normal gait present Motor exam (neuro): 5/5 motor strength present throughout Extrem General: Yes full ROM, Yes no joint enlargement, Yes no clubbing, cyanosis or edema and Yes no calf tenderness Results Reviewed Results Reviewed: ENTERED: 03/09/23 JANI FAM: ORDERED: Met Prof Fast, AST, ALT, Lipid Panel, Vitamin D 25-OH, Free T4, TSH Test Result Flag Reference Site Sodium 140 135-145 mmol/L Potassium 4.6 3.3-5.1 mmol/L CL 106 96-108 mmol/L CO2 26 22-29 mmol/L Gap 13 12-20 BUN 21 H 9-16 mg/dL Creat 0.77 0.5-1.4 mg/dL EGFR > 60 NOTE: For -[place] individuals, multiply the result by 1.210. Chronic Kidney Disease: Estimated GFR < 60 mL/min/1.73m2 Severe Kidney Disease: Estimated GFR < 15 mL/min/1.73m2 FBS 110 H 60-99 mg/dL A fasting glucose from 100-125 mg/dl is considered impaired (pre-diabetes). CA 10.3 H 8.4-10.2 mg/dL AST (GOT) 16 5-31 U/L ALT (GPT) 16 0-31 U/L Triglyceride 133 <150 mg/dL Desirable Triglyceride: less than 150 mg/dL Borderline High Triglyceride 150-199 mg/dL High Triglyceride: 200-499 mg/dL Very High Triglyceride: greater than or equal to 5OO mg/dL Cholesterol 187 <200 mg/dL Desirable Cholesterol: less than 200 mg/dL Borderline High Cholesterol: 200-239 mg/dL High Cholesterol: greater than 239 mg/dL LDL Calculated 118 H <100 mg/dL Desirable LDL: less than 100 mg/dL Near Optimal/Above Optimal LDL: 110-129 mg/dL Borderline High LDL: 130-159 mg/dL High LDL: 160-189 mg/dL Very High LDL: greater than or equal to 190 mg/dL HDL 43 >40 mg/dL Desirable HDL: greater than 40 mg/dL Note: This HDL assay may give artificially low results in patients with liver disease. Vit D 25-OH Tot 79.7 >30 ng/mL Health Based Reference Values* < 20 ng/mL Deficient 20-30 ng/mL Insufficient > 30 ng/mL Sufficient *Jose SWIFT. N Engl J Med. 2007;357:266-280 Care must be taken in interpreting Vitamin D results from different laboratories and methodologies. Published data demonstrated that results from patients undergoing hemodialysis may show a negative bias when tested with various automated 25-OH vitamin D assays when compared to LC-MS/MS. When testing samples from patients whose predominant form of Vitamin D is Vitamin D2, such as patients receiving Vitamin D2 supplementation, results that are subtherapeutic should be confirmed with another method such as LC-MS/MS. Free T4 0.94 0.71-1.85 ng/dL TSH 3rd Gen. 3.22 0.32-4.0 uIU/mL Note: A sustained TSH level above 2.5 uIU/mL may warrant further investigation. Laboratory Tests 03/09/23 06:32 Estimat Average Glucose 111 Hemoglobin A1c % 5.5 Assessment and Plan Assessment & Plan (1) Impaired fasting glucose: Comment: Code(s): R73.01 - Impaired fasting glucose Plan: Latest hemoglobin A1c is at 5.5% with glucose of 110 mg/dL. Continue with adhering to healthy eating habits and getting regular exercise. (2) Hypothyroidism (acquired): Code(s): E03.9 - Hypothyroidism, unspecified Plan: Latest thyroid levels are within normal limits, continue with current dose of levothyroxine 50 mcg daily in a.m.. (3) Hyperlipidemia: Code(s): E78.5 - Hyperlipidemia, unspecified Qualifiers: Hyperlipidemia type: pure hypercholesterolemia Qualified Code(s): E78.00 - Pure hypercholesterolemia, unspecified Plan: Reviewed recent fasting lipid profile with patient with levels within normal limits . Continue with simvastatin 40 mg at bedtime , in addition to adherence to low-cholesterol diet and regular exercise, at least 30 minutes 3 to 4 times a week. Advised patient to make healthy food choices, eat more fruits, vegetables, whole grains, wild caught fish and low-fat dairy. Limit amount of meat and fried or fatty food products, as well as processed foods and fast foods. Follow-up scheduled with repeat fasting lipid panel in 6 months. (4) Refused influenza vaccine: Code(s): Z28.21 - Immunization not carried out because of patient refusal Orders: Orders Hemoglobin A1c 09/22/23 E03.9 - Hypothyroidism, unspecified, E78.5 - Hyperlipidemia, unspecified, M81.0 - Age-related osteoporosis without current pathological fracture, R73.01 - Impaired fasting glucose Alanine Aminotransferase 09/22/23 E03.9 - Hypothyroidism, unspecified, E78.5 - Hyperlipidemia, unspecified, M81.0 - Age-related osteoporosis without current pathological fracture, R73.01 - Impaired fasting glucose Free T4 (Free Thyroxine) 09/22/23 E03.9 - Hypothyroidism, unspecified Lipid Panel 09/22/23 E03.9 - Hypothyroidism, unspecified, E78.5 - Hyperlipidemia, unspecified, M81.0 - Age-related osteoporosis without current pathological fracture, R73.01 - Impaired fasting glucose Basic Metabolic Panel Fasting 09/22/23 E03.9 - Hypothyroidism, unspecified, E78.5 - Hyperlipidemia, unspecified, M81.0 - Age-related osteoporosis without current pathological fracture, R73.01 - Impaired fasting glucose Vitamin D 25-OH Total 09/22/23 E03.9 - Hypothyroidism, unspecified, E78.5 - Hyperlipidemia, unspecified, M81.0 - Age-related osteoporosis without current pathological fracture, R73.01 - Impaired fasting glucose Aspartate Amino Transferase 09/22/23 E03.9 - Hypothyroidism, unspecified, E78.5 - Hyperlipidemia, unspecified, M81.0 - Age-related osteoporosis without current pathological fracture, R73.01 - Impaired fasting glucose Thyroid Stimulating Hormone 09/22/23 E03.9 - Hypothyroidism, unspecified Coding Level of Care Code Est Pt Level 4 (96300) Diagnoses Impaired fasting glucose R73.01 Hypothyroidism (acquired) E03.9 Pure hypercholesterolemia E78.00 Hyperlipidemia type: pure hypercholesterolemia Refused influenza vaccine Z28.21
== END 2023-03-16 10:17 | disposition home or self-care (01) ==
PROVIDERS: PCP Internal Medicine; Visit Provider Internal Medicine
DX: R73.01 Impaired fasting glucose (principal); E03.9 Hypothyroidism, unspecified; E78.00 Pure hypercholesterolemia, unspecified; Z28.21 Immunization not carried out because of patient refusal
CPT/HCPCS: 99214

== ENCOUNTER 2023-10-06 06:24 | Outpatient (REF) | payer MEDICARE, SELFPAY ==
[2023-10-06 10:37] LABS: Estimated Average Glucose 120 mg/dL; Hemoglobin A1c % 5.8 % (<6.0)
[2023-10-06 10:55] LABS: Alanine Aminotransferase 13 U/L (0-31); Anion Gap 12 (12-20); Aspartate Amino Transferase 14 U/L (5-31); Blood Urea Nitrogen 22 mg/dL (9-16); Calcium 10.2 mg/dL (8.4-10.2); Carbon Dioxide 25 mmol/L (22-29); Chloride 108 mmol/L (96-108); Cholesterol 152 mg/dL (<200); Estimated Glomerular Filt Rate > 60; Glucose Fasting 115 mg/dL (60-99); HDL Cholesterol 46 mg/dL (>40); LDL Cholesterol Calculated 90 mg/dL (<100); Potassium 4.4 mmol/L (3.3-5.1); Sodium 141 mmol/L (135-145); Triglycerides 82 mg/dL (<150)
[2023-10-06 11:18] LABS: Free T4 (Free Thyroxine) 0.92 ng/dL (0.71-1.85); Vitamin D 25-OH Total 74.6 ng/mL (>30)
== END 2023-10-06 06:25 | disposition home or self-care (01) ==
LOC: HO.HMGCLDS 06:24
PROVIDERS: PCP Internal Medicine; Visit Provider Internal Medicine
DX: M81.0 Age-related osteoporosis without current pathological fracture (principal); R73.01 Impaired fasting glucose; E03.9 Hypothyroidism, unspecified; E78.5 Hyperlipidemia, unspecified
CPT/HCPCS: 36415; 80048; 80061; 82306; 83036; 84439; 84443; 84450; 84460

== ENCOUNTER 2023-10-11 09:14 | Outpatient (AMB) | payer MEDICARE, SELFPAY ==
--- NOTE | 2023-10-11 09:17 | MHC.PC.OV ---
Vital Signs 10/11/23 09:22 Height 5 ft 3.69 in Weight 148 lb BMI 25.6 BP 120/80 Blood Pressure Location Lt brachial Position Sitting Pulse 83 Pulse Source Pulse Oximeter Pulse Oximetry (%) 95 Oxygen Delivery Method Room Air Intake Visit Reasons: 5 month fu Intake Note: Pt is here today for her 5 months f/u Allergies No Known Allergies [No Known Allergies*] Allergy (Verified 10/11/23 10:00) Medication List - Last Reconciled 10/11/23 by Sandi Faulkner MD aspirin 81 mg PO DAILY cholecalciferol (vitamin D3) 25 mcg PO DAILY levothyroxine 50 mcg PO QAM simvastatin 40 mg PO BEDTIME Tobacco use date assessed: 10/11/23 Fall risk assessment: No Falls in past year Last assessed Fall Risk: 10/11/23 Dental Screening Dental Screen Date: 10/11/23 Did you have a dental visit in the last 12 months?: No Was dental information given to patient?: Patient declined HPI 5 month fu HPI Details 83-year-old lady with hyperlipidemia currently on simvastatin 40 mg at bedtime, has hypothyroidism taking levothyroxine 50 mcg daily in a.m. and osteoporosis, not currently taking any treatment except for vitamin-D supplement, here today for follow-up. [facility] Medical History Refused influenza vaccine Osteoporosis Fracture dislocation of left shoulder joint Impaired fasting glucose Hypothyroidism (acquired) Hyperlipidemia Surgical History History of cataract surgery History of tonsillectomy and adenoidectomy Hx of total hysterectomy Family History Father No problems noted. Mother No problems noted. Maternal Grandmother No problems noted. Maternal Grandfather No problems noted. Social History Housing: House Alcohol intake: never Patient Tobacco Use Status: Never used Tobacco e-Cigarette/Vaping Use: Never Used Current occupational status: retired Cognitive needs: No Hearing needs: No Vision needs: No Questionnaire Thrive Questionnaire Date Thrive assessed: 03/16/23 AUDIT C Alcohol Use Questionnaire (AUDIT-C) 1. How often do you have a drink containing alcohol?: Never Total Score: 0 BINTA-7 AMB Questionnaire BINTA-7 Date BINTA - 7 assessed: 03/16/23 Source: Developed by Drs. Daryl Sandoval, Megan Gurrola, Ananth Lake and colleagues, with an educational becky from [employer]. Review of Systems Const Denies body aches, Denies fatigue, Denies fever(s), Denies frequent falls, Denies headache(s) and Denies weakness Eyes Details: [facility] Reports no additional complaints and Denies change in vision ENT Denies dizziness, Denies headache(s), Denies nasal congestion, Denies nasal discharge, Denies disequilibrium and Denies sore throat Card Denies chest pain, Denies lightheadedness, Denies palpitations and Denies dyspnea Resp Denies chest congestion, Denies cough, Denies dyspnea and Denies wheezing GI Denies abdominal pain, Denies change in bowel habits and Denies heartburn Denies urinary frequency, Denies difficulty voiding, Denies dysuria, Denies prolapse symptoms and Denies urinary urgency Musc Reports no additional complaints Skin/Breast Denies breast pain, Denies breast mass, Denies lesions and Denies rash Neuro Denies dizziness, Denies frequent falls, Denies headache(s), Denies disequilibrium and Denies weakness Psych Reports no additional complaints Endo Denies fatigue, Denies polydipsia, Denies polyuria and Denies palpitations Michael/Lymph Denies easy bruising Aller/Immun Denies seasonal rhinorrhea and Denies wheezing Physical exam (Primary Care) Vital Signs: Last Vital Signs Pulse 83 10/11/23 09:22 BP 120/80 10/11/23 09:22 Pulse Ox 95 10/11/23 09:22 Oxygen Delivery Method Room Air 10/11/23 09:22 BMI result Body Mass Index 25.6 Tobacco/Smoking Status: Tobacco use Status Tobacco use date assessed 10/11/23 10/11/23 09:19 Patient Tobacco Use Status Never used Tobacco 10/11/23 09:17 e-Cigarette/Vaping Use Never Used 10/11/23 09:17 Thrive Assessment: Date of Thrive Assessment Date Thrive assessed 03/16/23 10/11/23 09:17 Const General: comfortable, no acute distress and alert Orientation/consciousness: patient oriented x3 Limitations: no limitations HENMT Ears: hearing grossly normal bilaterally and external ears normal General nose exam: Normal external nose present Mouth: oropharynx normal and moist mucous membranes Eyes General: appearance normal, both eyes and all related structures Neck Neck: Yes full ROM, Yes no lymphadenopathy and Yes supple Resp Effort & Inspection: normal respiratory effort and able to speak in complete sentences Auscultation: clear to auscultation bilaterally Cardio Rate: regular rate Rhythm: regular rhythm Heart sounds: S1 normal heart sound present and S2 normal heart sound present GI Palpation (GI): Soft to palpation, nontender and no masses Auscultation: normal bowel sounds General: Yes no CVA tenderness Back/Spine/Pelvis Back: no CVA tenderness and No back tenderness Neuro General: patient oriented x3, gait normal, moves all extremities and no focal motor deficits Cranial nerves: Yes CN's II-XII intact bilaterally Cognition (Neuro): normal cognition Gait exam (Neuro): Normal gait present Motor exam (neuro): 5/5 motor strength present throughout Extrem General: Yes full ROM, Yes no joint enlargement, Yes no clubbing, cyanosis or edema and Yes no calf tenderness Psych Appearance: grossly normal and well kempt Mental Status: mental status grossly normal Speech and movement: Normal speech and movement present Affect: normal affect Results Reviewed Results Reviewed: Name: Magnolia Phillips Age/Sex: 83/F [facility] 1940 [id number] [id number] Attend Dr: Sandi Faulkner MD Re10/06/23 Status: DEP REF Location: [facility] Disch: SPEC : [id number] CYNDI: 10/06/23 STATUS: COMP REQ : [id number] RECD: 10/06/23-[address]: Sandi Faulkner MD COMP: 10/06/238 ENTERED: 10/06/[address]: ORDERED: Met Prof Fast, AST, ALT, Lipid Panel, Vitamin D 25-OH, Free T4, TSH Test Result Flag Reference Sodium 141 135-145 mmol/L Potassium 4.4 3.3-5.1 mmol/L CL 108 96-108 mmol/L CO2 25 22-29 mmol/L Gap 12 12-20 BUN 22 H 9-16 mg/dL Creat 0.79 0.5-1.4 mg/dL EGFR > 60 NOTE: For -[place] individuals, multiply the result by 1.210. Chronic Kidney Disease: Estimated GFR < 60 mL/min/1.73m2 Severe Kidney Disease: Estimated GFR < 15 mL/min/1.73m2 FBS 115 H 60-99 mg/dL A fasting glucose from 100-125 mg/dl is considered impaired (pre-diabetes). CA 10.2 8.4-10.2 mg/dL AST (GOT) 14 5-31 U/L ALT (GPT) 13 0-31 U/L Triglyceride 82 <150 mg/dL Desirable Triglyceride: less than 150 mg/dL Borderline High Triglyceride 150-199 mg/dL High Triglyceride: 200-499 mg/dL Very High Triglyceride: greater than or equal to 5OO mg/dL Cholesterol 152 <200 mg/dL Desirable Cholesterol: less than 200 mg/dL Borderline High Cholesterol: 200-239 mg/dL High Cholesterol: greater than 239 mg/dL LDL Calculated 90 <100 mg/dL Desirable LDL: less than 100 mg/dL Near Optimal/Above Optimal LDL: 110-129 mg/dL Borderline High LDL: 130-159 mg/dL High LDL: 160-189 mg/dL Very High LDL: greater than or equal to 190 mg/dL HDL 46 >40 mg/dL Desirable HDL: greater than 40 mg/dL Note: This HDL assay may give artificially low results in patients with liver disease. Vit D 25-OH Tot 74.6 >30 ng/mL Health Based Reference Values* < 20 ng/mL Deficient 20-30 ng/mL Insufficient > 30 ng/mL Sufficient *Jose SWIFT. N Engl J Med. 2007;357:266-280 Care must be taken in interpreting Vitamin D results from different laboratories and methodologies. Published data demonstrated that results from patients undergoing hemodialysis may show a negative bias when tested with various automated 25-OH vitamin D assays when compared to LC-MS/MS. When testing samples from patients whose predominant form of Vitamin D is Vitamin D2, such as patients receiving Vitamin D2 supplementation, results that are subtherapeutic should be confirmed with another method such as LC-MS/MS. Free T4 0.92 0.71-1.85 ng/dL TSH 3rd Gen. 1.70 0.32-4.0 uIU/mL TSH 3rd Generation ([facility]) Laboratory Tests 10/06/23 06:39 Estimat Average Glucose 120 Hemoglobin A1c % 5.8 Assessment and Plan Assessment & Plan (1) Hyperlipidemia: Code(s): E78.5 - Hyperlipidemia, unspecified Qualifiers: Hyperlipidemia type: pure hypercholesterolemia Qualified Code(s): E78.00 - Pure hypercholesterolemia, unspecified Plan: Reviewed recent fasting lipid profile with patient with levels within acceptable limits. . Continue simvastatin 40 mg at bedtime , in addition to adherence to low-cholesterol diet and regular exercise, at least 30 minutes 3 to 4 times a week. Advised patient to make healthy food choices, eat more fruits, vegetables, whole grains, wild caught fish and low-fat dairy. Limit amount of meat and fried or fatty food products, as well as processed foods and fast foods. Follow-up scheduled with repeat fasting lipid panel in 6 months. (2) Hypothyroidism (acquired): Code(s): E03.9 - Hypothyroidism, unspecified Plan: Thyroid levels are within normal limits. Continued on current dose of levothyroxine 50 mcg daily, repeat another TSH and free T4 in six-month (3) Impaired fasting glucose: Comment: Code(s): R73.01 - Impaired fasting glucose Plan: Reinforced importance of following a healthy diet and getting regular exercise. Orders: Orders Vitamin D 25-OH Total 04/01/24 E03.9 - Hypothyroidism, unspecified, E78.00 - Pure hypercholesterolemia, unspecified, M81.0 - Age-related osteoporosis without current pathological fracture, R73.01 - Impaired fasting glucose Alanine Aminotransferase 04/01/24 E03.9 - Hypothyroidism, unspecified, E78.00 - Pure hypercholesterolemia, unspecified, M81.0 - Age-related osteoporosis without current pathological fracture, R73.01 - Impaired fasting glucose Hemoglobin A1c 04/01/24 E03.9 - Hypothyroidism, unspecified, E78.00 - Pure hypercholesterolemia, unspecified, M81.0 - Age-related osteoporosis without current pathological fracture, R73.01 - Impaired fasting glucose Lipid Panel 04/01/24 E03.9 - Hypothyroidism, unspecified, E78.00 - Pure hypercholesterolemia, unspecified, M81.0 - Age-related osteoporosis without current pathological fracture, R73.01 - Impaired fasting glucose Thyroid Stimulating Hormone 04/01/24 E03.9 - Hypothyroidism, unspecified, E78.00 - Pure hypercholesterolemia, unspecified, M81.0 - Age-related osteoporosis without current pathological fracture, R73.01 - Impaired fasting glucose Free T4 (Free Thyroxine) 04/01/24 E03.9 - Hypothyroidism, unspecified, E78.00 - Pure hypercholesterolemia, unspecified, M81.0 - Age-related osteoporosis without current pathological fracture, R73.01 - Impaired fasting glucose Aspartate Amino Transferase 04/01/24 E03.9 - Hypothyroidism, unspecified, E78.00 - Pure hypercholesterolemia, unspecified, M81.0 - Age-related osteoporosis without current pathological fracture, R73.01 - Impaired fasting glucose Glucose Fasting 04/01/24 E03.9 - Hypothyroidism, unspecified, E78.00 - Pure hypercholesterolemia, unspecified, M81.0 - Age-related osteoporosis without current pathological fracture, R73.01 - Impaired fasting glucose Coding Level of Care Code Est Pt Level 4 (57981) Diagnoses Pure hypercholesterolemia E78.00 Hyperlipidemia type: pure hypercholesterolemia Hypothyroidism (acquired) E03.9 Impaired fasting glucose R73.01
[2023-10-11 09:22] VITALS: BP 120/80; PULSE 83; O2SAT 95; BMI 25.6
== END 2023-10-11 10:17 | disposition home or self-care (01) ==
PROVIDERS: PCP Internal Medicine; Visit Provider Internal Medicine
DX: E78.00 Pure hypercholesterolemia, unspecified (principal); E03.9 Hypothyroidism, unspecified; R73.01 Impaired fasting glucose
CPT/HCPCS: 99214

== ENCOUNTER 2024-03-07 07:55 | Outpatient (REF) | payer MEDICARE, SELFPAY ==
--- NOTE | ~2024-03-07 | MM_ITS ---
EXAMINATION: BONE DENSITOMETRY CLINICAL INDICATION: Age-related osteoporosis without current pathological fracture. COMPARISON: Previous BD dated 02/20/2022 and baseline BD dated 12/15/2007. TECHNIQUE: Using a [employer] DXA System (software version: 13.1) manufactured by [employer], dual-energy x-ray absorptiometry was performed of the lumbar spine and left hip. The images are of good technical quality. Summary results are attached. FINDINGS: LEFT FEMUR, NECK: Current: BMD 0.704 g/cm2, Z-score -0.2, T-score -2.4, osteopenia. Prior: BMD 0.600 g/cm2. Baseline: BMD 0.708 g/cm2. LEFT FEMUR, TOTAL: Current: BMD 0.832 g/cm2, Z-score 0.6, T-score -1.4, osteopenia, 9.9% increase from previous, 0.2% increase from baseline (<5% change is not significant). Prior: BMD 0.757 g/cm2. Baseline: BMD 0.830 g/cm2. AP SPINE L1-L4: Current: BMD 1.219 g/cm2, Z-score 2.1, T-score 0.3, normal, 5.8% decrease from previous, 9.8% increase from baseline (<5% change is not significant). Prior: BMD 1.294 g/cm2. Baseline: BMD 1.110 g/cm2. IDENTIFIED RISK FACTORS: Menopause, hysterectomy, history of fracture (adult). HISTORY OF FRACTURE: Shoulder. MEDICATIONS: Vitamin D. MM/XR DEXA axial skeleton IMPRESSION: 1. DIAGNOSIS: Osteopenia based on the lowest T-score value of -2.4 in the femoral neck applying World Health Organization criteria. 2. 10-YEAR FRACTURE RISK PREDICTION, FRAX: Major osteoporotic fracture (clinical spine, forearm, hip or shoulder) 18.6%. Hip fracture 6.6%. 3. Treatment Recommendations: NOF guidelines recommend consideration for treatment in postmenopausal women and men age 50 and older presenting with the following: -A hip or vertebral (clinical or morphometric) fracture. -T-score less than or equal to -2.5 at the femoral neck or spine after appropriate evaluation to exclude secondary causes. -Low bone mass at the hip or spine and a 10-year fracture probability by FRAX of greater than or equal to 3% for hip fracture or greater than or equal to 20% for major osteoporotic fracture based on the [place] adapted WHO algorithm. 4. Other Recommendations: All treatment decisions require clinical judgment and consideration of individual patient factors, including patient preferences, comorbidities, previous drug use, risk factors not captured in the FRAX model (e.g. frailty, falls, vitamin D deficiency, increased bone turnover, interval significant decline in bone density) and possible under or overestimation of fracture risk by FRAX. Additional medical evaluation for secondary cause of low bone mineral density may be appropriate. FUTURE SCAN RECOMMENDATION: People with diagnosed cases of osteoporosis or at high risk for fracture should have regular bone mineral density tests. For patients eligible for Medicare, routine testing is allowed once every 2 years. The testing frequency can be increased to one year for patients who have rapidly progressing disease, those who are receiving or discontinuing medical therapy to restore bone mass, or have additional risk factors. Electronically signed by: Chinmay Harden MD 03/07/2024 10:51 AM EDT
--- NOTE | ~2024-03-07 | MM_ITS ---
EXAMINATION: MM SCREENING DIGITAL BREAST TOMOSYNTHESIS, BILATERAL CLINICAL INFORMATION: Screening. Asymptomatic. COMPARISON: Mammography: Comparison is made with available priors TECHNIQUE: Digital breast mammography with tomosynthesis is performed in both the craniocaudal and mediolateral oblique views along with computer-aided detection (CAD). FINDINGS: There are scattered areas of fibroglandular density (ACR BI-RADS breast composition Category b). There are no significant masses, abnormal calcifications, or other abnormalities. MM/MM tomosynthesis screening BI IMPRESSION: No mammographic evidence of malignancy. ASSESSMENT: BI-RADS BI-RADS 1 - Negative RECOMMENDATION: Routine annual mammography screening. 1 year F/U This examination should not preclude the clinical evaluation of a suspicious palpable abnormality. This patient's information was entered into a reminder system with a target due date for their next mammogram. Electronically signed by: Alexandra Mayes DO 03/17/2024 05:43 PM EDT
== END 2024-03-07 07:56 | disposition home or self-care (01) ==
LOC: HO.MAMMO 07:55
PROVIDERS: PCP Internal Medicine; Visit Provider Internal Medicine Endocrinology, Diabetes & Metabolism
DX: Z12.31 Encounter for screening mammogram for malignant neoplasm of breast (principal); M81.0 Age-related osteoporosis without current pathological fracture
CPT/HCPCS: 77063; 77067; 77080

== ENCOUNTER → 2024-03-07 08:00 | Outpatient (BNV) | payer MEDICARE, SELFPAY | PROVIDERS: PCP Internal Medicine; Visit Provider Internal Medicine | DX: Z12.31 Encounter for screening mammogram for malignant neoplasm of breast (principal) | CPT/HCPCS: 77063; 77067 ==

== ENCOUNTER 2024-03-09 07:58 | Outpatient (AMB) | payer MEDICARE, SELFPAY ==
--- NOTE | 2024-03-09 08:09 | MHC.OFFVIS ---
Vital Signs 03/09/24 08:10 Height 5 ft 3.69 in Weight 144 lb 6.444 oz BMI 25.0 BP 148/62 H Blood Pressure Location Lt brachial Position Sitting Pulse 76 Pulse Source Pulse Oximeter Intake Visit Reasons: f/u osteoporosis/CONFIRMED Intake Note: Patient present today for Osteoporosis follow up visit. [employer] Required: No Accompanied by: Self / Same As Patient Allergies No Known Allergies [No Known Allergies*] Allergy (Verified 03/09/24 08:14) Medication List - Last Reconciled 03/09/24 by Daryl Muller MD aspirin 81 mg PO DAILY cholecalciferol (vitamin D3) 25 mcg PO DAILY levothyroxine 50 mcg PO QAM simvastatin 40 mg PO BEDTIME HPI Comments Details: 84 YO Female with is seen in consultation at the request of PCP for Osteoporosis. First diagnosed with osteoporosis many yrs ago . Receiving treatment with alendronate , more than 10 yrs Tolerated treatment well without complication. No history of pathologic fracture or ONJ. But hx of R shoulder fx fell from standing Has several servings of dietary calcium per day in the form of cheese, yogurt . Does not Takes Calcium supplement Takes 1000 IU of Vitamin D daily. Denies ever using PPI, anticoagulant, antiepileptic or glucocorticoid medication. Does weight bearing exercise 7 days per week in the form of walking . 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 UTD on dental cleanings and sees dentist every 6 months. No planned upcoming dental work or extractions. DXA dated []:FINDINGS: AP SPINE L1-L4: Current: BMD 1.294 g/cm2, Z-score 2.7, T-score 1.0, normal, 9.6% increase from previous, 16.6% increase from baseline (<5% change is not significant). Prior: BMD 1.181 g/cm2. Baseline: BMD 1.110 g/cm2. LEFT FEMUR, NECK: Current: BMD 0.600 g/cm2, Z-score -1.1, T-score -3.2, osteoporosis. Prior: BMD 0.700 g/cm2. Baseline: BMD 0.708 g/cm2. LEFT FEMUR, TOTAL: Current: BMD 0.757 g/cm2, Z-score -0.1, T-score -2.0, osteopenia, 12.6% decrease from previous, 8.8% decrease from baseline (<5% change is not significant). Prior: BMD 0.866 g/cm2. Baseline: BMD 0.830 g/cm2. IDENTIFIED RISK FACTORS: Menopause, hysterectomy, history of fracture (adult). HISTORY OF FRACTURE: Shoulder. MEDICATIONS: Multivitamin, bisphosphonates. MM/XR DEXA axial skeleton IMPRESSION: 1. DIAGNOSIS: Osteoporosis based on the lowest T-score value of -3.2 in the femoral neck applying World Health Organization criteria.? Labs: secondary workup negative. Urine NTX continues to be suppressed. No Fractures since last visit [facility] Medical History Refused influenza vaccine Osteoporosis Fracture dislocation of left shoulder joint Impaired fasting glucose Hypothyroidism (acquired) Hyperlipidemia Surgical History History of cataract surgery History of tonsillectomy and adenoidectomy Hx of total hysterectomy Family History Father No problems noted. Mother No problems noted. Maternal Grandmother No problems noted. Maternal Grandfather No problems noted. Social History Housing: House Alcohol intake: never Patient Tobacco Use Status: Never used Tobacco e-Cigarette/Vaping Use: Never Used Current occupational status: retired Cognitive needs: No Hearing needs: No Vision needs: No Physical Exam Vital Signs: Last Vital Signs Pulse 76 03/09/24 08:10 BP 148/62 H 03/09/24 08:10 BMI result Body Mass Index 25.0 Assessment & Plan Assessment & Plan (1) Osteoporosis: Comment: left femoral neck on dexa 2021 Code(s): M81.0 - Age-related osteoporosis without current pathological fracture Category: Medical Qualifiers: Osteoporosis type: age-related Presence of current pathological fracture: without current pathological fracture Qualified Code(s): M81.0 - Age-related osteoporosis without current pathological fracture Plan: This is a 84-year-old white female with a history of osteoporosis. Has taken 10 years of alendronate therapy. secondary workup is negative. Urine NTX was suppressed. Recent bone density was stable The plan is to continue to hold the alendronate and will repeat urine NTX Continue calcium and vitamin-D Orders: Orders Collagen Crosslinks NTX Today M81.0 - Age-related osteoporosis without current pathological fracture Coding Level of Care Code Est Pt Level 3 (91841) Diagnoses Age-related osteoporosis without current pathological fracture M81.0 Osteoporosis type: age-related Presence of current pathological fracture: without current pathological fracture
[2024-03-09 08:10] VITALS: BP 148/62; PULSE 76; BMI 25.0
== END 2024-03-09 08:43 | disposition home or self-care (01) ==
PROVIDERS: PCP Internal Medicine; Visit Provider Internal Medicine Endocrinology, Diabetes & Metabolism
DX: M81.0 Age-related osteoporosis without current pathological fracture (principal)
CPT/HCPCS: 99213

== ENCOUNTER → 2024-03-09 07:58 | Outpatient (BNVA) | payer MEDICARE, SELFPAY | PROVIDERS: PCP Internal Medicine; Visit Provider Internal Medicine Endocrinology, Diabetes & Metabolism | DX: M81.0 Age-related osteoporosis without current pathological fracture (principal) | CPT/HCPCS: 99212 ==

== ENCOUNTER 2024-04-03 06:46 | Outpatient (REF) | payer MEDICARE, SELFPAY ==
[2024-04-03 10:54] LABS: Alanine Aminotransferase 18 U/L (0-31); Aspartate Amino Transferase 21 U/L (5-31); Cholesterol 166 mg/dL (<200); Glucose Fasting 111 mg/dL (60-99); HDL Cholesterol 46 mg/dL (>40); LDL Cholesterol Calculated 89 mg/dL (<100); Triglycerides 155 mg/dL (<150)
[2024-04-03 10:56] LABS: Estimated Average Glucose 117 mg/dL; Hemoglobin A1C 142.1158 umol/L; Hemoglobin A1c % 5.7 % (<6.0); Total Hemoglobin (HGBA1C) 3702.6189 umol/L
[2024-04-03 11:26] LABS: Free T4 (Free Thyroxine) 0.95 ng/dL (0.71-1.85); Vitamin D 25-OH Total 91.5 ng/mL (>30)
[2024-04-08 06:33] LABS: N-Telopeptide 23 (see note); NTXCreaRU 42 mg/dL (20-275)
== END 2024-04-03 06:47 | disposition home or self-care (01) ==
LOC: HO.HMGCLDS 06:46
PROVIDERS: PCP Internal Medicine; Referring Provider Internal Medicine Endocrinology, Diabetes & Metabolism; Visit Provider Internal Medicine
DX: M81.0 Age-related osteoporosis without current pathological fracture (principal); R73.01 Impaired fasting glucose; E03.9 Hypothyroidism, unspecified; E78.00 Pure hypercholesterolemia, unspecified
CPT/HCPCS: 36415; 80061; 82306; 82523; 82947; 83036; 84439; 84443; 84450; 84460

== ENCOUNTER 2024-04-12 08:09 | Outpatient (AMB) | payer MEDICARE, SELFPAY ==
[2024-04-12 08:25] VITALS: BP 142/80; PULSE 92; O2SAT 96; BMI 25.7
--- NOTE | 2024-04-12 08:25 | MHC.PC.OV ---
Vital Signs 04/12/24 08:25 Height 5 ft 3 in Weight 145 lb BMI 25.7 BP 142/80 H Blood Pressure Location Lt brachial Position Sitting Pulse 92 Pulse Source Pulse Oximeter Pulse Oximetry (%) 96 Oxygen Delivery Method Room Air Intake Visit Reasons: 6 month fu Intake Note: Pt is here today for her 6 mo. f/u Allergies No Known Allergies [No Known Allergies*] Allergy (Verified 04/12/24 08:45) Medication List - Last Reconciled 04/12/24 by Sandi Faulkner MD aspirin 81 mg PO DAILY cholecalciferol (vitamin D3) 25 mcg PO DAILY levothyroxine 50 mcg PO QAM simvastatin 40 mg PO BEDTIME Tobacco use date assessed: 04/12/24 Fall risk assessment: No Falls in past year Last assessed Fall Risk: 04/12/24 Dental Screening Dental Screen Date: 04/12/24 Did you have a dental visit in the last 12 months?: No Did you have a dental problem in the last 6 months where you did not have access to dental care?: No Was dental information given to patient?: No HPI 6 month fu HPI Details The patient is an 84-year-old female presenting for a routine check-up and review of recent laboratory tests and bone density scan results. There is a history of osteopenia localized in the left hip and thigh, with recent bone density improvements noted in the left femur, especially with consistent exercise and supplementation with Vitamin D and calcium. No history of fractures The patient experienced a significant increase in triglyceride levels, from 82 mg/dL in September to 155 mg/dL recently, possibly due to dietary changes including the increased consumption of peanut butter sandwiches on white bread. Cholesterol levels remained within normal limits, with total cholesterol at 166 mg/dL, LDL at 89 mg/dL, and HDL at 46 mg/dL. The mammogram performed in February was normal, and regular vision exams show no presence of macular degeneration, cataracts, or glaucoma. The patient wears dentures and is up to date on Tetanus and diphtheria vaccinations since 2018 and received the Prevnar 20 vaccine. There is no participation in flu or COVID-19 vaccinations, and no history of tolerance to the shingles vaccine. [facility] Medical History (Updated 04/12/24 @ 09:01 by Sandi Faulkner MD) Osteopenia of multiple sites Refused influenza vaccine Fracture dislocation of left shoulder joint Impaired fasting glucose Hypothyroidism (acquired) Hyperlipidemia Surgical History History of cataract surgery History of tonsillectomy and adenoidectomy Hx of total hysterectomy Family History Father No problems noted. Mother No problems noted. Maternal Grandmother No problems noted. Maternal Grandfather No problems noted. Social History Housing: House Alcohol intake: never Patient Tobacco Use Status: Never used Tobacco e-Cigarette/Vaping Use: Never Used Current occupational status: retired Cognitive needs: No Hearing needs: No Vision needs: No Questionnaire Thrive Questionnaire Date Thrive assessed: 03/16/23 BINTA-7 AMB Questionnaire BINTA-7 Date BINTA - 7 assessed: 03/16/23 Source: Developed by Drs. Daryl Sandoval, Megan Gurrola, Ananth Lake and colleagues, with an educational becky from [employer]. Review of Systems Const Denies body aches, Denies fatigue, Denies fever(s), Denies frequent falls, Denies headache(s) and Denies weakness Eyes Details: [place] [facility] Reports no additional complaints and Denies change in vision ENT Details: has dentures Denies dizziness, Denies headache(s), Denies nasal congestion, Denies nasal discharge, Denies disequilibrium and Denies sore throat Card Denies chest pain, Denies lightheadedness, Denies palpitations and Denies dyspnea Resp Denies chest congestion, Denies cough, Denies dyspnea and Denies wheezing GI Denies abdominal pain, Denies change in bowel habits and Denies heartburn Denies urinary frequency, Denies difficulty voiding, Denies dysuria, Denies prolapse symptoms and Denies urinary urgency Musc Reports no additional complaints Skin/Breast Denies breast pain, Denies breast mass, Denies lesions and Denies rash Neuro Denies dizziness, Denies frequent falls, Denies headache(s), Denies disequilibrium and Denies weakness Psych Reports no additional complaints Endo Denies fatigue, Denies polydipsia, Denies polyuria and Denies palpitations Michael/Lymph Denies easy bruising Aller/Immun Denies seasonal rhinorrhea and Denies wheezing Physical exam (Primary Care) Vital Signs: Last Vital Signs Pulse 92 04/12/24 08:25 BP 142/80 H 04/12/24 08:25 Pulse Ox 96 04/12/24 08:25 Oxygen Delivery Method Room Air 04/12/24 08:25 BMI result Body Mass Index 25.7 Tobacco/Smoking Status: Tobacco use Status Tobacco use date assessed 04/12/24 04/12/24 08:30 Patient Tobacco Use Status Never used Tobacco 04/12/24 08:30 e-Cigarette/Vaping Use Never Used 04/12/24 08:30 Thrive Assessment: Date of Thrive Assessment Date Thrive assessed 03/16/23 04/12/24 08:30 Const General: comfortable, no acute distress and alert Orientation/consciousness: patient oriented x3 HENMT Ears: hearing grossly normal bilaterally and external ears normal General nose exam: Normal external nose present Mouth: oropharynx normal and moist mucous membranes Eyes General: appearance normal, both eyes and all related structures Neck Neck: Yes full ROM, Yes no lymphadenopathy and Yes supple Resp Effort & Inspection: normal respiratory effort and able to speak in complete sentences Auscultation: clear to auscultation bilaterally Cardio Rate: regular rate Rhythm: regular rhythm Heart sounds: S1 normal heart sound present and S2 normal heart sound present GI Palpation (GI): Soft to palpation, nontender and no masses Auscultation: normal bowel sounds General: Yes no CVA tenderness Back/Spine/Pelvis Back: no CVA tenderness and No back tenderness Neuro General: patient oriented x3, gait normal, moves all extremities and no focal motor deficits Cranial nerves: Yes CN's II-XII intact bilaterally Cognition (Neuro): normal cognition Gait exam (Neuro): Normal gait present Motor exam (neuro): 5/5 motor strength present throughout Extrem General: Yes full ROM, Yes no joint enlargement, Yes no clubbing, cyanosis or edema and Yes no calf tenderness Psych Appearance: grossly normal and well kempt Mental Status: mental status grossly normal Speech and movement: Normal speech and movement present Affect: normal affect Results Reviewed Results Reviewed: Name: Magnolia Phillips Age/Sex: 84/F : 1940 Unit#: [id number] Attend Dr: Sandi Faulkner MD Re04/03/24 Status: DEP REF Location: [facility] Disch: SPEC : [id number] CYNDI: 04/03/24 STATUS: COMP REQ : [id number] RECD: 04/03/24-[address] [facility] [address]: Sandi Faulkner MD COMP: 04/03/24 ENTERED: 04/03/[address]: ORDERED: Glu Fasting, AST, ALT, Lipid Panel, Vitamin D 25-OH, Free T4, TSH Test Result Flag Reference FBS 111 H 60-99 mg/dL A fasting glucose from 100-125 mg/dl is considered impaired (pre-diabetes). AST (GOT) 21 5-31 U/L ALT (GPT) 18 0-31 U/L Triglyceride 155 H <150 mg/dL Desirable Triglyceride: less than 150 mg/dL Borderline High Triglyceride 150-199 mg/dL High Triglyceride: 200-499 mg/dL Very High Triglyceride: greater than or equal to 5OO mg/dL Cholesterol 166 <200 mg/dL Desirable Cholesterol: less than 200 mg/dL Borderline High Cholesterol: 200-239 mg/dL High Cholesterol: greater than 239 mg/dL LDL Calculated 89 <100 mg/dL Desirable LDL: less than 100 mg/dL Near Optimal/Above Optimal LDL: 110-129 mg/dL Borderline High LDL: 130-159 mg/dL High LDL: 160-189 mg/dL Very High LDL: greater than or equal to 190 mg/dL HDL 46 >40 mg/dL Desirable HDL: greater than 40 mg/dL Note: This HDL assay may give artificially low results in patients with liver disease. Vit D 25-OH Tot 91.5 >30 ng/mL Health Based Reference Values* < 20 ng/mL Deficient 20-30 ng/mL Insufficient > 30 ng/mL Sufficient *Jose SWIFT. N Engl J Med. 2007;[id number]:[id number] Care must be taken in interpreting Vitamin D results from different laboratories and methodologies. Published data demonstrated that results from patients undergoing hemodialysis may show a negative bias when tested with various automated 25-OH vitamin D assays when compared to LC-MS/MS. When testing samples from patients whose predominant form of Vitamin D is Vitamin D2, such as patients receiving Vitamin D2 supplementation, results that are subtherapeutic should be confirmed with another method such as LC-MS/MS. Free T4 0.95 0.71-1.85 ng/dL TSH 3rd Gen. 2.30 0.32-4.0 uIU/mL TSH 3rd Generation ([facility]) Laboratory Tests 04/03/24 06:30 Estimat Average Glucose 117 Hemoglobin A1c % 5.7 Urine Creatinine 42 Coding Level of Care Code Est Pt Level 4 (32943) Complex EM visit Add On G2211 Diagnoses Hypothyroidism (acquired) E03.9 Pure hypercholesterolemia E78.00 Hyperlipidemia type: pure hypercholesterolemia Impaired fasting glucose R73.01 Osteopenia of multiple sites M85.89 Assessment & Plan Assessment & Plan (1) Hypothyroidism (acquired): Code(s): E03.9 - Hypothyroidism, unspecified Category: Medical Plan: Thyroid levels are within normal limits, continue current dose of levothyroxine 50 mcg daily in a.m. (2) Hyperlipidemia: Code(s): E78.5 - Hyperlipidemia, unspecified Category: Medical Qualifiers: Hyperlipidemia type: pure hypercholesterolemia Qualified Code(s): E78.00 - Pure hypercholesterolemia, unspecified (3) Impaired fasting glucose: Comment: Code(s): R73.01 - Impaired fasting glucose Category: Medical Plan: Your previous fasting blood sugars were elevated above 100 mg/dL. Impaired glucose metabolism increases the risk for developing diabetes mellitus type 2, as well as heart attack and stroke later on. Lifestyle changes that promotes weight loss, healthy eating habits, and regular exercise are important, and can prevent the progression to diabetes (4) Osteopenia of multiple sites: Code(s): M85.89 - Other specified disorders of bone density and structure, multiple sites Category: Medical Plan - Osteopenia: Maintain current exercise routine and continue Vitamin E and calcium supplementation; repeat bone density scan in two years. - Hypertriglyceridemia: Advise dietary modifications to reduce intake of white bread and processed foods; promote balanced nutrition. - Routine check-up follow-up: Schedule a follow-up appointment in six months with laboratory work to be completed prior, focusing on cholesterol. Patient was informed and verbally consented to the use of an ambient scribe for clinic note documentation during this visit. Orders: Orders Hemoglobin A1c 09/21/24 E03.9 - Hypothyroidism, unspecified, E78.00 - Pure hypercholesterolemia, unspecified, M85.89 - Other specified disorders of bone density and structure, multiple sites, R73.01 - Impaired fasting glucose Vitamin D 25-OH Total 09/21/24 E03.9 - Hypothyroidism, unspecified, E78.00 - Pure hypercholesterolemia, unspecified, M85.89 - Other specified disorders of bone density and structure, multiple sites, R73.01 - Impaired fasting glucose Alanine Aminotransferase 09/21/24 E03.9 - Hypothyroidism, unspecified, E78.00 - Pure hypercholesterolemia, unspecified, M85.89 - Other specified disorders of bone density and structure, multiple sites, R73.01 - Impaired fasting glucose Aspartate Amino Transferase 09/21/24 E03.9 - Hypothyroidism, unspecified, E78.00 - Pure hypercholesterolemia, unspecified, M85.89 - Other specified disorders of bone density and structure, multiple sites, R73.01 - Impaired fasting glucose Basic Metabolic Panel Fasting 09/21/24 E03.9 - Hypothyroidism, unspecified, E78.00 - Pure hypercholesterolemia, unspecified, M85.89 - Other specified disorders of bone density and structure, multiple sites, R73.01 - Impaired fasting glucose Lipid Panel 09/21/24 E03.9 - Hypothyroidism, unspecified, E78.00 - Pure hypercholesterolemia, unspecified, M85.89 - Other specified disorders of bone density and structure, multiple sites, R73.01 - Impaired fasting glucose Thyroid Stimulating Hormone 09/21/24 E03.9 - Hypothyroidism, unspecified, E78.00 - Pure hypercholesterolemia, unspecified, M85.89 - Other specified disorders of bone density and structure, multiple sites, R73.01 - Impaired fasting glucose Free T4 (Free Thyroxine) 09/21/24 E03.9 - Hypothyroidism, unspecified, E78.00 - Pure hypercholesterolemia, unspecified, M85.89 - Other specified disorders of bone density and structure, multiple sites, R73.01 - Impaired fasting glucose
== END 2024-04-12 09:04 | disposition home or self-care (01) ==
PROVIDERS: PCP Internal Medicine; Visit Provider Internal Medicine
DX: E03.9 Hypothyroidism, unspecified (principal); E78.00 Pure hypercholesterolemia, unspecified; R73.01 Impaired fasting glucose; M85.89 Other specified disorders of bone density and structure, multiple sites

== ENCOUNTER → 2024-04-12 08:09 | Outpatient (BNVA) | payer MEDICARE, SELFPAY | PROVIDERS: PCP Internal Medicine; Visit Provider Internal Medicine | DX: E03.9 Hypothyroidism, unspecified (principal); E78.00 Pure hypercholesterolemia, unspecified; R73.01 Impaired fasting glucose; M85.89 Other specified disorders of bone density and structure, multiple sites | CPT/HCPCS: 99212 ==

== ENCOUNTER 2024-10-04 06:05 | Outpatient (REF) | payer MEDICARE, SELFPAY ==
[2024-10-04 10:12] LABS: Estimated Average Glucose 120 mg/dL; Hemoglobin A1C 136.9763 umol/L; Hemoglobin A1c % 5.8 % (<6.0); Total Hemoglobin (HGBA1C) 3429.0588 umol/L
[2024-10-04 10:41] LABS: Alanine Aminotransferase 20 U/L (0-31); Anion Gap 12 (12-20); Aspartate Amino Transferase 23 U/L (5-31); Blood Urea Nitrogen 16 mg/dL (9-16); Calcium 9.8 mg/dL (8.4-10.2); Carbon Dioxide 26 mmol/L (22-29); Chloride 107 mmol/L (96-108); Cholesterol 169 mg/dL (<200); Estimated Glomerular Filt Rate > 60; Glucose Fasting 114 mg/dL (60-99); HDL Cholesterol 46 mg/dL (>40); LDL Cholesterol Calculated 96 mg/dL (<100); Potassium 4.2 mmol/L (3.3-5.1); Sodium 141 mmol/L (135-145); Triglycerides 136 mg/dL (<150)
[2024-10-04 10:52] LABS: Free T4 (Free Thyroxine) 0.97 ng/dL (0.71-1.85); Thyroid Stimulating Hormone 2.45 uIU/mL (0.32-4.0); Vitamin D 25-OH Total 85.9 ng/mL (>30)
== END 2024-10-04 06:06 | disposition home or self-care (01) ==
LOC: HO.HMGCLDS 06:05
PROVIDERS: PCP Internal Medicine; Visit Provider Internal Medicine
DX: E78.00 Pure hypercholesterolemia, unspecified (principal); E03.9 Hypothyroidism, unspecified; R73.01 Impaired fasting glucose; M85.89 Other specified disorders of bone density and structure, multiple sites
CPT/HCPCS: 36415; 80048; 80061; 82306; 83036; 84439; 84443; 84450; 84460

== ENCOUNTER 2024-10-11 07:52 | Outpatient (AMB) | payer MEDICARE, SELFPAY ==
[2024-10-11 08:01] VITALS: BP 150/70; PULSE 84; RESP 16; TEMP 36.7; O2SAT 98; BMI 25.5
--- NOTE | 2024-10-11 08:01 | A.OFFPC_ITS ---
Vital Signs 10/11/24 08:01 10/11/24 08:38 Height 5 ft 3 in Weight 144 lb BMI 25.5 BP 150/70 H 140/70 H Blood Pressure Location Rt brachial Rt brachial Position Sitting Sitting Respiration 16 Pulse 84 Pulse Source Pulse Oximeter Temp 98.1 F Temp Source Oral Pulse Oximetry (%) 98 Oxygen Delivery Method Room Air Intake Visit Reasons: 6 months follow up Intake Note: Pt is here today for her 6mo. f/u Allergies No Known Allergies [No Known Allergies*] Allergy (Verified 10/11/24 08:02) Tobacco use date assessed: 10/11/24 Fall risk assessment: No Falls in past year Last assessed Fall Risk: 10/11/24 Dental Screening Dental Screen Date: 10/11/24 Did you have a dental visit in the last 12 months?: No Did you have a dental problem in the last 6 months where you did not have access to dental care?: No Was dental information given to patient?: No HPI 6 months follow up HPI Details 84 Year old lady with history of hyperli pidemia and hypothyroidism, here today for her follow-up. She remains very active, still mows her lawn, drives her car lives in her own home, compliant with taking her medications and eating healthy foods that she cooks. He has been feeling well with no complaints at present time. Latest fasting labs showed normal lipids, thyroid levels normal renal function and slightly elevated fasting glucose with a hemoglobin A1c of 5.8%. Still gets for her screening mammogram and bone density scan, last done February 2024 which showed negative findings on mammogram and osteopenia in her left femoral neck and left hip with normal bone density in her lower back. No history of fractures. She has been feeling well, with no active complaints at present time. [facility] Medical History Osteopenia of multiple sites Refused influenza vaccine Fracture dislocation of left shoulder joint Impaired fasting glucose Hypothyroidism (acquired) Hyperlipidemia Surgical History History of cataract surgery History of tonsillectomy and adenoidectomy Hx of total hysterectomy Family History Father No problems noted. Mother No problems noted. Maternal Grandmother No problems noted. Maternal Grandfather No problems noted. Social History Housing: House Alcohol intake: never Patient Tobacco Use Status: Never used Tobacco e-Cigarette/Vaping Use: Never Used Current occupational status: retired Cognitive needs: No Hearing needs: No Vision needs: No Questionnaire PHQ-9 Over the last 2 weeks, how often have you been bothered by any of the following problems? 1. Little interest or pleasure in doing things: not at all 2. Feeling down, depressed, or hopeless: not at all 3. Trouble falling or staying asleep, or sleeping too much: not at all 4. Feeling tired or having little energy: not at all 5. Poor appetite or overeating: not at all 6. Feeling bad about yourself - or that you are a failure or have let yourself or your family down: not at all 7. Trouble concentrating on things, such as reading the newspaper or watching television: not at all 8. Moving or speaking so slowly that other people could have noticed. Or the opposite - being so fidgety or restless that you have been moving around a lot more than usual: not at all 9. Thoughts that you would be better off or of hurting yourself in some way: not at all Total score: 0 Depression Screening Interpretation: Negative Depression Screening Done: Yes [id number] - PHQ-9 Billing: Yes Source: Developed by Drs. Daryl Sandoval, Megan Gurrola, Ananth Lake and colleagues, with an educational becky from [employer]. Thrive Questionnaire Date Thrive assessed: 10/11/24 I am a: Patient What is your living situation today?: I have a steady place to live Within the past 12 months, did the food you bought not last and you didn't have the money to get more?: Never true Within the past 12 months, did you worry whether your food would run out before you got money to buy more?: Never true Do you have trouble paying for medicines?: No Do you have trouble getting transportation to medical appointments?: No Do you have trouble paying your heating and electricity bill?: No Do you have trouble taking care of your child, family member or friend?: No Do you have trouble with day-to-day activities such as bathing, preparing meals, shopping, managing finances, etc.?: No Are you currently unemployed and looking for a job?: No Are you interested in more education?: No THRIVE Score: 0 BINTA-7 AMB Questionnaire BINTA-7 Date BINTA - 7 assessed: 03/16/23 Source: Developed by Drs. Daryl Sandoval, Megan Gurrola, Ananth Lake and colleagues, with an educational becky from [employer]. Review of Systems Const Denies body aches, Denies fatigue, Denies fever(s), Denies frequent falls, Denies headache(s) and Denies weakness Eyes Details: [facility] Reports no additional complaints ENT Details: has dentures Denies dizziness, Denies headache(s), Denies nasal congestion, Denies nasal discharge, Denies disequilibrium and Denies sore throat Card Denies chest pain, Denies lightheadedness, Denies palpitations and Denies dyspnea Resp Denies chest congestion, Denies cough, Denies dyspnea and Denies wheezing GI Denies abdominal pain, Denies change in bowel habits and Denies heartburn Denies urinary frequency, Denies difficulty voiding, Denies dysuria, Denies prolapse symptoms and Denies urinary urgency Musc Reports no additional complaints Skin/Breast Denies breast pain, Denies breast mass, Denies lesions and Denies rash Neuro Denies dizziness, Denies frequent falls, Denies headache(s), Denies disequilibrium and Denies weakness Psych Reports no additional complaints Endo Denies fatigue, Denies polydipsia, Denies polyuria and Denies palpitations Michael/Lymph Denies easy bruising Aller/Immun Denies seasonal rhinorrhea and Denies wheezing Physical exam (Primary Care) Vital Signs: Last Vital Signs Temp 98.1 F 10/11/24 08:01 Pulse 84 10/11/24 08:01 Resp 16 10/11/24 08:01 BP 140/70 H 10/11/24 08:38 Pulse Ox 98 10/11/24 08:01 Oxygen Delivery Method Room Air 10/11/24 08:01 BMI result Body Mass Index 25.5 Tobacco/Smoking Status: Tobacco use Status Tobacco use date assessed 10/11/24 10/11/24 08:05 Patient Tobacco Use Status Never used Tobacco 10/11/24 08:05 e-Cigarette/Vaping Use Never Used 10/11/24 08:05 PHQ-9: PHQ-9 Score PHQ-9: Total score 0 10/11/24 08:39 Depression Screening Interpretation: Negative Thrive Assessment: Date of Thrive Assessment Date Thrive assessed 10/11/24 10/11/24 08:13 Const General: comfortable, no acute distress and alert Orientation/consciousness: patient oriented x3 HENMT Ears: hearing grossly normal bilaterally and external ears normal General nose exam: Normal external nose present Mouth: oropharynx normal and moist mucous membranes Eyes General: appearance normal, both eyes and all related structures Neck Neck: Yes full ROM, Yes no lymphadenopathy and Yes supple Resp Effort & Inspection: normal respiratory effort and able to speak in complete sen tences Auscultation: clear to auscultation bilaterally Cardio Rate: regular rate Rhythm: regular rhythm Heart sounds: S1 normal heart sound present and S2 normal heart sound present GI Palpation (GI): Soft to palpation, nontender and no masses Auscultation: normal bowel sounds General: Yes no CVA tenderness Back/Spine/Pelvis Back: no CVA tenderness and No back tenderness Neuro General: patient oriented x3, gait normal, moves all extremities and no focal motor deficits Cranial nerves: Yes CN's II-XII intact bilaterally Cognition (Neuro): normal cognition Gait exam (Neuro): Normal gait present Motor exam (neuro): 5/5 motor strength present throughout Extrem General: Yes full ROM, Yes no joint enlargement, Yes no clubbing, cyanosis or edema and Yes no calf tenderness Psych Appearance: grossly normal and well kempt Mental Status: mental status grossly normal Speech and movement: Normal speech and movement present Affect: normal affect Coding Level of Care Code Est Pt Level 4 (22248) Complex EM visit Add On G2211 Diagnoses Osteopenia of multiple sites M85.89 Impaired fasting glucose R73.01 Hypothyroidism (acquired) E03.9 Pure hypercholesterolemia E78.00 Hyperlipidemia type: pure hypercholesterolemia Additional Codes PHQ-9 - 94283 - PHQ-9 Billing: Yes ([id number]) Assessment & Plan Assessment & Plan (1) Osteopenia of multiple sites: Code(s): M85.89 - Other specified disorders of bone density and structure, multiple sites Category: Medical Plan: Continue with vitamin-D 3 supplements take adequate calcium from dietary sources and continue doing regular weight-bearing exercise (2) Impaired fasting glucose: Comment: Code(s): R73.01 - Impaired fasting glucose Category: Medical Plan: Latest hemoglobin A1c is within normal limits, continue with healthy eating habits and regular exercise (3) Hypothyroidism (acquired): Code(s): E03.9 - Hypothyroidism, unspecified Category: Medical Plan: Continue with same dose of levothyroxine 50 mcg daily in a.m. (4) Hyperlipidemia: Code(s): E78.5 - Hyperlipidemia, unspecified Category: Medical Qualifiers: Hyperlipidemia type: pure hypercholesterolemia Qualified Code(s): E78.00 - Pure hypercholesterolemia, unspecified Plan: Continue simvastatin 40 mg at bedtime. Will see her back for follow-up in a year, do fasting labs prior to visit Orders: Orders Hemoglobin A1c 09/21/25 E03.9 - Hypothyroidism, unspecified, E78.00 - Pure hypercholesterolemia, unspecified, M85.89 - Other specified disorders of bone density and structure, multiple sites, R73.01 - Impaired fasting glucose Basic Metabolic Panel Fasting 09/21/25 E03.9 - Hypothyroidism, unspecified, E78.00 - Pure hypercholesterolemia, unspecified, M85.89 - Other specified disorders of bone density and structure, multiple sites, R73.01 - Impaired fasting glucose Aspartate Amino Transferase 09/21/25 E03.9 - Hypothyroidism, unspecified, E78.00 - Pure hypercholesterolemia, unspecified, M85.89 - Other specified disorders of bone density and structure, multiple sites, R73.01 - Impaired fasting glucose Lipid Panel 09/21/25 E03.9 - Hypothyroidism, unspecified, E78.00 - Pure hypercholesterolemia, unspecified, M85.89 - Other specified disorders of bone density and structure, multiple sites, R73.01 - Impaired fasting glucose Thyroid Stimulating Hormone 09/21/25 E03.9 - Hypothyroidism, unspecified, E78.00 - Pure hypercholesterolemia, unspecified, M85.89 - Other specified disorders of bone density and structure, multiple sites, R73.01 - Impaired fasting glucose Alanine Aminotransferase 09/21/25 E03.9 - Hypothyroidism, unspecified, E78.00 - Pure hypercholesterolemia, unspecified, M85.89 - Other specified disorders of bone density and structure, multiple sites, R73.01 - Impaired fasting glucose Vitamin D 25-OH Total 09/21/25 E03.9 - Hypothyroidism, unspecified, E78.00 - Pure hypercholesterolemia, unspecified, M85.89 - Other specified disorders of bone density and structure, multiple sites, R73.01 - Impaired fasting glucose Free T4 (Free Thyroxine) 09/21/25 E03.9 - Hypothyroidism, unspecified, E78.00 - Pure hypercholesterolemia, unspecified, M85.89 - Other specified disorders of bone density and structure, multiple sites, R73.01 - Impaired fasting glucose
[2024-10-11 08:38] VITALS: BP 140/70
== END 2024-10-11 08:43 | disposition home or self-care (01) ==
LOC: HO.HMCC 07:52
PROVIDERS: PCP Internal Medicine; Visit Provider Internal Medicine
DX: M85.89 Other specified disorders of bone density and structure, multiple sites (principal); R73.01 Impaired fasting glucose; E03.9 Hypothyroidism, unspecified; E78.00 Pure hypercholesterolemia, unspecified

== ENCOUNTER → 2024-10-11 07:52 | Outpatient (BNVA) | payer MEDICARE, SELFPAY | PROVIDERS: PCP Internal Medicine; Visit Provider Internal Medicine | DX: R73.01 Impaired fasting glucose (principal); E78.00 Pure hypercholesterolemia, unspecified; E03.9 Hypothyroidism, unspecified; M85.89 Other specified disorders of bone density and structure, multiple sites | CPT/HCPCS: 96127; 99212 ==

== ENCOUNTER 2025-03-20 07:27 | Outpatient (REF) | payer MEDICARE, SELFPAY | END 2025-03-20 07:28 | disposition home or self-care (01) | LOC: HO.MAMMO 07:27 | PROVIDERS: PCP Internal Medicine; Visit Provider Internal Medicine | DX: Z12.31 Encounter for screening mammogram for malignant neoplasm of breast (principal) | CPT/HCPCS: 77063; 77067 ==

== ENCOUNTER → 2025-03-20 07:30 | Outpatient (BNV) | payer MEDICARE, SELFPAY | PROVIDERS: PCP Internal Medicine; Visit Provider Internal Medicine | DX: Z12.31 Encounter for screening mammogram for malignant neoplasm of breast (principal) | CPT/HCPCS: 77063; 77067 ==